=== PATIENT | male | born 1955 | race Hispanic/Latino ===

== ENCOUNTER 2019-05-18 10:41 | Day surgery (SDC) | payer SELFPAY ==
[~2019-05-18 10:41] MED LIST: Dexamethasone 20 MG/5 ML VIAL ONE; Ketorolac Tromethamine 30 MG/ML VIAL ONE; Ondansetron PF 4 MG/2 ML Vial ONE; PROPOFOL 200 MG/20 ML VIAL ONE; diphenhydrAMINE 50 MG/ML VIAL ONE
--- NOTE | 2019-05-18 11:19 | RAD ---
4 views of the right elbow: 05/18/2019 COMPARISON: None HISTORY: Fall, trauma, pain FINDINGS: There is prominent diffuse soft tissue swelling overlying the right elbow as well as the vi sualized right forearm. There is an obliquely oriented intra-articular fracture involving the proximal right ulna/olecranon. The olecranon fracture fragment is proximally displaced secondary to r etraction from the triceps insertion. No evidence for dislocation. IMPRESSION: Intra-articular fracture of the proximal right ulna. Orthopedic consultation advised.
[2019-05-18 11:36] LABS: #Eosinphils 0.1 thou/uL (0.0-0.7); #Lymphocytes 1.6 thou/uL (1.20-3.40); #Monocytes 0.9 thou/uL (0.11-0.59); #Neutrophils 8.1 thou/uL (1.40-6.50); %Basophils 0.4 % (0.0-1.0); %Eosinophils 1.1 % (0.0-10.0); %Lymphocytes 14.8 % (21.0-51.0); %Monocytes 8.4 % (0.0-10.0); %Neutrophils 75.3 % (42.0-75.0); Hemoglobin 14.1 g/dL (14.0-18.0); Mean Corpuscular HGB CONC 33.8 g/dL (32.0-36.0); Mean Corpuscular Hemoglobin 29.9 pg (27.0-31.0); Mean Corpuscular Volume 88.4 fL (78.0-98.0); Mean Platelet Volume 9.8 fL (7.4-10.4); Platelet Count 199 thou/uL (130-400); RBC Distribution Width 11.4 % (11.5-14.5); Red Blood Cell (RBC) Count 4.73 mill/uL (4.70-6.10); White Blood Cell (WBC) Count 10.8 thou/uL (4.8-10.8)
[2019-05-18 11:43] LABS: PTT 30.4 SEC (22.9-36.1); Prothrombin Time 12.9 SEC (12.0-14.7)
--- NOTE | 2019-05-18 11:56 | RAD ---
EXAM: Portable chest PROVIDED CLINICAL HISTORY: Preop COMPARISON: 01/26/2005 FINDINGS: Cardiac and mediastinal silhouette is within normal limits. No focal consolidation, pleural fluid or pneumothorax evident. IMPRESSION: No evidence for an acute cardiopulmonary process.
[2019-05-18 12:00] LABS: ALT (SGPT) 27 U/L (8-55); AST (SGOT) 23 U/L (5-34); Albumin 4.4 g/dL (3.4-4.8); Alkaline Phosphatase 89 U/L (40-110); Anion Gap 16 mmol/L (10-20); BUN (Urea Nitrogen) 12 mg/dL (8.4-25.7); Bilirubin, Total 0.5 mg/dL (0.2-1.2); Calc. Creatinine Clearance 0 mL/min (70-130); Calcium 9.3 mg/dL (7.8-10.44); Carbon Dioxide 20 mmol/L (23-31); Chloride 104 mmol/L (98-107); Estimated GFR-MDRD Greater than 90; Globulin 3.5 g/dL (2.4-3.5); Glucose 71 mg/dL (80-115); Potassium 4.1 mmol/L (3.5-5.1); Protein, Total 7.9 g/dL (5.8-8.1); Sodium 136 mmol/L (136-145)
[2019-05-18] MEDS ORDERED: Morphine 4 MG/ML VIAL ONE (13:45)
[2019-05-18] MEDS ORDERED: Fentanyl 100 MCG/2 ML VIAL ONE ×2 (17:02→18:17)
[2019-05-18] MEDS ORDERED: Labetalol HCl 100 MG/20 ML VIAL ONE (18:28)
[2019-05-18] MEDS ORDERED: HYDROcodone/Acetaminophen 5/325 mg Tablet ONE (19:51)
--- NOTE | 2019-05-19 | OP ---
DATE OF PROCEDURE: 05/18/2019 PROCEDURE PERFORMED: Open reduction and internal fixation of right olecranon fracture. PREOPERATIVE DIAGNOSIS: Displaced right olecranon fracture. POSTOP DIAGNOSIS: Displaced right olecranon fracture. COMPLICATIONS: None. ESTIMATED BLOOD LOSS: Minimal. PHILOSOPHY INSTRUCTOR: None. IMPLANTS: Synthes olecranon plate with variable angle 3.5 mm. INDICATIONS: Mr. Goldsmith is a 63-year-old male, who has fallen and fractured his right olecranon. He has been indicated for open reduction and internal fixation of the fracture to restore anatomic alignment and promote healing. Risks have been reviewed in detail. He elected to proceed with the operation. DESCRIPTION OF PROCEDURE: Mr. Goldsmith was identified in the preoperative holding area. His correct extremity was marked. He was carried to the operating room. He was positioned supine. General anesthesia was induced. A multidisciplinary time-out was performed. The right upper extremity was prepped and draped in sterile fashion. We began the procedure with a posterior incision over the elbow. We dissected down through the subcutaneous tissues to the fascia, which was opened. We exposed the underlying bone. We cleared bony fragments. We reduced the fracture back into its anatomic position and held this with a K-wire. We also used a reduction clamp. Next, we applied a Synthes olecranon plate along the posterior aspect of the olecranon. We placed multiple screws proximally and distally. This locked the plate to the bone and held our reduction appropriately in anatomic position. We took x-ray images throughout the procedure. Once we felt all appropriate screw holes, we took final images. We then thoroughly irrigated with copious lavage. At this point, we closed in layers. 0 Vicryl suture, 2-0 Vicryl suture, and nicole were used for the skin. A sterile dressing was applied. The patient was taken to the recovery room after being placed in a well-padded splint. Job ID: [id number]
--- NOTE | 2019-05-19 07:55 | RAD ---
Radiograph right elbow 2 views: 05/18/2019 5:20 PM HISTORY: 63-year-old male with acute traumatic proximal elbow fracture FINDINGS: Small [id number] fluoroscopic spot images obtained with C-arm in the OR. The fracture at the base of the olecranon process has been reduced and fixated with metallic plate and numerous screws. IMPRESSION: Status post open reduction internal fixation of proximal ulnar fracture at base of olecranon process.
== END 2019-05-18 20:20 | disposition home or self-care (01) ==
LOC: ERS 10:41
PROVIDERS: ATTEND Orthopaedic Surgery
PROC: 0PSK04Z Reposition Right Ulna with Internal Fixation Device, Open Approach (ICD-10-PCS; principal; 2019-05-18)
DX: S52.031A Displaced fracture of olecranon process with intraarticular extension of right ulna, initial encounter for closed fracture (principal); W19.XXXA Unspecified fall, initial encounter
CPT/HCPCS: 36415; 71045; 76000; 80053; 85025; 85610; 85652; 85730; 86140; 93005; 96361; 96374; C1713; J1100; J1200; J1885; J2270; J2405; J2704; J3010

== ENCOUNTER 2019-05-24 12:08 | Emergency (ER) | payer SELFPAY ==
--- NOTE | 2019-05-24 12:56 | RAD ---
RIGHT ELBOW FOUR VIEW: HISTORY: Pain and swelling of the right elbow. FINDINGS: Interval postop changes of reduction and internal fixation of the fracture of the olecranon process o f the ulna is seen with placement of plate and screws since the exam of 05/18/2019. Anatomic alignmen t has been restored. Soft tissue swelling is improved. Skin nicole are present. POS: [facility]
== END 2019-05-24 15:40 | disposition home or self-care (01) ==
LOC: ERS 12:08
DX: G89.18 Other acute postprocedural pain (principal); I10 Essential (primary) hypertension; F17.210 Nicotine dependence, cigarettes, uncomplicated

== ENCOUNTER 2019-06-01 09:36 | Emergency (ER) | payer SELFPAY | END 2019-06-01 10:45 | disposition home or self-care (01) | LOC: ERS 09:36 | DX: Z48.01 Encounter for change or removal of surgical wound dressing (principal); I10 Essential (primary) hypertension; F17.210 Nicotine dependence, cigarettes, uncomplicated | CPT/HCPCS: 99281 ==

== ENCOUNTER 2020-01-31 16:45 | Inpatient (IN) | payer SELFPAY ==
[~2020-01-31 16:45] MED LIST changes: -Dexamethasone 20 MG/5 ML VIAL ONE; +Iopamidol-370 76% 500 ML 1 ML ONE; -Ketorolac Tromethamine 30 MG/ML VIAL ONE; -Ondansetron PF 4 MG/2 ML Vial ONE; -PROPOFOL 200 MG/20 ML VIAL ONE; -diphenhydrAMINE 50 MG/ML VIAL ONE
[2020-01-31 17:32] LABS: Hemoglobin 15.5 g/dL (14.0-18.0); Mean Corpuscular HGB CONC 30.5 g/dL (32.0-36.0); Mean Corpuscular Hemoglobin 27.7 pg (27.0-31.0); Mean Platelet Volume 10.3 fL (7.4-10.4); Platelet Count 215 thou/uL (130-400); RBC Distribution Width 11.8 % (11.5-14.5); White Blood Cell (WBC) Count 22.2 thou/uL (4.8-10.8)
[2020-01-31 17:38] LABS: PTT 24.5 sec (22.9-36.1); Prothrombin Time 13.2 sec (12.0-14.7)
--- NOTE | 2020-01-31 17:46 | CT ---
EXAM: CT brain without contrast HISTORY: Found down by friends with altered mental status and left-sided weakness COMPARISON: 12/11/2008 TECHNIQUE: Multiple contiguous axial images were obtained and a CT of the brain without contrast. FINDINGS: There is hypodensity in the right MCA distribution involving the frontal, parietal, and tem poral lobes which was not seen on the prior examination and likely represents an interval infarction of uncertain age in the MCA distribution. There is no evidence of hydrocephalus, intracran ial hemorrhage, or extra-axial fluid collection. The calvarium and overlying soft tissues are unremarkable. The visualized paranasal sinuses and masto id air cells are well aerated. IMPRESSION: Interval development of infarction in the right MCA distribution. This appears more subac bebeto or chronic rather than acute. Dr. Clancy notified of findings at 5:41 PM on 01/31/2020
[2020-01-31 17:47] LABS: Lymphocytes 12 % (21-51); MDiff Complete? YES; Monocytes 7 % (0-10); Neutrophil 81 % (42-75); Platelet Morphology Comment Appears Adequate; RBC Morphology Normal
[2020-01-31 17:58] LABS: ALT (SGPT) 79 U/L (8-55); AST (SGOT) 35 U/L (5-34); Albumin 3.7 g/dL (3.4-4.8); Alkaline Phosphatase 76 U/L (40-110); Anion Gap 13 mmol/L (10-20); BUN (Urea Nitrogen) 26 mg/dL (8.4-25.7); Bilirubin, Total 0.6 mg/dL (0.2-1.2); Calc. Creatinine Clearance 0 mL/min (70-130); Calcium 8.8 mg/dL (7.8-10.44); Carbon Dioxide 27 mmol/L (23-31); Chloride 104 mmol/L (98-107); Estimated GFR-MDRD 75; Glucose 116 mg/dL (80-115); Potassium 3.7 mmol/L (3.5-5.1); Protein, Total 6.7 g/dL (5.8-8.1); Sodium 140 mmol/L (136-145)
[2020-01-31] MEDS ORDERED: Ondansetron PF 4 MG/2 ML Vial ONE (17:59)
[2020-01-31 18:06] LABS: Acetaminophen Less than 6.0 mcg/mL (10.0-30.0); Alcohol Less than 10 mg/dL (Less than 10); Salicylate Less than 8.0 mg/dL (15.0-30.0)
[2020-01-31 18:42] LABS: Amphetamine Not Detected (NotDetected); Barbiturates Screen Not Detected (NotDetected); Benzodiazepine Screen Not Detected (NotDetected); Cocaine Metabolite Screen Not Detected (NotDetected); Medtox Control Line Valid? VALID (VALID); Medtox Reader # READER 4; Methadone Not Detected (NotDetected); Methamphetamine Not Detected (NotDetected); Opiate Screen Not Detected (NotDetected); Oxycodone Screen Not Detected (NotDetected); Phencyclidine (PCP) Not Detected (NotDetected); THC/Cannabinoid Screen Not Detected (NotDetected); Tricyclic Screen Not Detected (NotDetected)
[2020-01-31] MEDS ORDERED: Aspirin Chewable 81 MG TAB ONE (19:02)
--- NOTE | 2020-01-31 19:03 | CT ---
CT ANGIOGRAM OF THE HEAD CT ANGIOGRAM OF THE NECK: History: Left sided weakness. Comparison: None Technique: CT angiogram of the head and neck performed in the axial plane. 3D reformatted images are submitted for interpretation. FINDINGS: There is loss of cortical harris white matter differentiation involving the right temporal lobe and rig ht occipital parietal junction. The rest of the cerebrum demonstrates cortical harris white matter differentiation and appropriate enha ncement. Adequate aeration of the sinuses and mastoid air cells. Bilateral orbits are unremarkable. Aerodigestive tract is patent. No mucosal abnormality. No obvious masses in the oral cavity. Midline fatty roof of the tongue is preserved. Epiglottis has a normal caliber. The epiglottic fat is preserv ed. Supraglottic, glottis and subglottic larynx have a attenuation and appearance. Appropriate attenuation of the submandibular glands, thyroid glands, and parotid gland. Appropriate attenuation of the paraspinal muscles. Cervical spine vertebral body heights are maintained. There is no evidence of fracture. Prominent ant erior osteophytes throughout the cervical spine. Correlate for DISH. There is a calcified focus along the posterior disc space at C5-6 with inferior and superior migration. 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 Findings may represent calcification of a extruded disc versus calcification in the anterior l ongitudinal ligament. The possibility of a calcified meningioma cannot be excluded. No acute abnormality in the upper mediastinum or lung apices. Nonspecific ground glass opacities are noted. CT ANGIOGRAM: There is appropriate enhancement and luminal diameter of the aortic arch. Right carotid: There is appropriate enhancement and luminal diameter of the origin of the right carot id artery, innominate artery, common carotid artery. There is complete occlusion of the right interna l carotid artery. Left carotid: There is appropriate enhancement and luminal diameter of the common carotid, carotid bi furcation, and internal carotid artery. No significant stenosis based upon NASCET criteria. Bilateral subclavian arteries are patent. Bilateral cervical vertebral arteries are patent. Dominant left vertebral artery. CT ANGIOGRAM OF THE HEAD: Absence of contrast in the intracranial right internal carotid artery. There is appropriate enhanceme nt and luminal diameter of the left internal carotid artery. Anterior circulation: There is appropriate enhancement and luminal diameter of the A1 segment and pro ximal A2 segments. There is appropriate enhancement and luminal diameter of the left and right M1 seg ments. There is irregularity involving distal branches of the right MCA distribution along with abrup t termination in the regions of loss of harris white matter differentiation along the right temporal an d right occipital parietal region. The left M1 segments and proximal MCA branches have appropriate en hancement and luminal diameter. Intracranial vertebral arteries. Both vertebral arteries supply normal appearing basilar arteries. Posterior circulation: Appropriate enhancement and diameter of the basilar artery. Bilateral P1 segme nts have appropriate enhancement and luminal diameter. IMPRESSION: 1. Vascular occlusion of the right internal carotid artery at its origin. There is evidence of c ollateral flow with a patent right A1 segment, M1 segment, and proximal A2 segment/MCA branches. Ther e is diminished flow with irregularity and termination of distal right MCA branches corresponding to the regions of loss of harris white matter differentiation in the right temporal lobe and right occipit al parietal region. Results of study discussed with Dr. Lay 01-31-2020 at 6:16 p.m. Code MITA POS: [facility]
--- NOTE | 2020-01-31 19:17 | PDOC.HHP ---
Hospitalist HPI - History of Present Illness Stroke History of Present Illness: Patient is a 64-year-old male who was brought into the emergency department today. Details are not very clear but it sounds like he was found down by his friends. They also indicated he may have possibly had a stroke 2 weeks prior. There was no way to corroborate any of this information and the patient is unable to give additional history. In the emergency department patient appears to have significant left-sided weakness. His work-up has been consistent with an ischemic stroke. ED Course: In the emergency department patient received 1 L of IV fluids, aspirin 325 mg and Zofran 4 mg IV push. Hospitalist ROS - Review of Systems ROS unobtainable: due to mental status - Medication Medications: None Hospitalist History - Past Medical History Source: old records Cardiac: reports: HTN - Past Surgical History Other Surgical History: Orthopedic procedures and an unknown abdominal surgery noted by a scar on the midline. - Family History Other Family History: Unobtainable - Social History Smoking Status: Current every day smoker Tobacco Type: cigarettes Alcohol: reports: Occassional - Exam General Appearance: NAD General - other findings: Very encephalopathic. Will answer questions. All affirmative. Heart: RRR, no murmur, no gallops, no rubs, normal peripheral pulses Respiratory: CTAB, no wheezes, no rales, no ronchi, normal chest expansion, no tachypnea, normal percussion Gastrointestinal: soft, non-tender, non-distended, normal bowel sounds, no palpable masses, no hepatomegaly, no splenomegaly, no bruit Extremities: no cyanosis, no clubbing, no edema Skin: normal turgor, no lesions, no rashes Neurological - other findings: Incomplete left hemiplegia. Left facial droop Musculoskeletal: generalized weakness Psychiatric: lethargic Psychiatric - other findings: Encephalopathic Hospitalist Results - Labs Result Diagrams: 01/31/20 17:24 01/31/20 17:24 Lab results: WBC 22.2 thou/uL (4.8-10.8) H 01/31/20 17:24 Hgb 15.5 g/dL (14.0-18.0) 01/31/20 17:24 Hct 50.9 % (42.0-52.0) 01/31/20 17:24 MCV 91.0 fL (78.0-98.0) 01/31/20 17:24 Plt Count 215 thou/uL (130-400) 01/31/20 17:24 Sodium 140 mmol/L (136-145) 01/31/20 17:24 Potassium 3.7 mmol/L (3.5-5.1) 01/31/20 17:24 Chloride 104 mmol/L (98-107) 01/31/20 17:24 Carbon Dioxide 27 mmol/L (23-31) 01/31/20 17:24 BUN 26 mg/dL (8.4-25.7) H 01/31/20 17:24 Creatinine 1.00 mg/dL (0.7-1.3) 01/31/20 17:24 Glucose 116 mg/dL (80-115) H 01/31/20 17:24 Calcium 8.8 mg/dL (7.8-10.44) 01/31/20 17:24 Total Bilirubin 0.6 mg/dL (0.2-1.2) 01/31/20 17:24 AST 35 U/L (5-34) H 01/31/20 17:24 ALT 79 U/L (8-55) H 01/31/20 17:24 Alkaline Phosphatase 76 U/L (40-110) 01/31/20 17:24 Troponin I Less than 0.010 ng/mL (< 0.028) 01/31/20 17:24 Serum Total Protein 6.7 g/dL (5.8-8.1) 01/31/20 17:24 Albumin 3.7 g/dL (3.4-4.8) 01/31/20 17:24 Hospitalist H&P A/P - Problem (1) CVA (cerebral vascular accident) Code(s): I63.9 - CEREBRAL INFARCTION, UNSPECIFIED Status: Acute (2) Left hemiplegia Code(s): G81.94 - HEMIPLEGIA, UNSPECIFIED AFFECTING LEFT NONDOMINANT SIDE Status: Acute (3) History of hypertension Code(s): Z86.79 - PERSONAL HISTORY OF OTHER DISEASES OF THE CIRCULATORY SYSTEM Status: Acute (4) Leukocytosis Code(s): D72.829 - ELEVATED WHITE BLOOD CELL COUNT, UNSPECIFIED Status: Acute - Plan Plan: CVA: Patient has significant left hemiplegia and left facial droop. It is incomplete. Currently he is encephalopathic as well. His imaging reveals complete right carotid occlusion with some collateral flow. Is not clear that t his patient's stroke evolved suddenly but may have been progressive over the last 2 weeks. Currently he requires hospitalization because of the significant encephalopathy and left-sided weakness. We will consult the stroke team and neurology. Originate aspirin and statin. We will keep him n.p.o. until he is evaluated by speech therapy. Permissive hypertension. Right carotid occlusion: No intervention possible given the extent of the occlusive disease. History of hypertension: Patient's blood pressure is normal in the emergency department. We will continue to monitor but allow for some hypertension given the setting of the stroke. Leukocytosis: No overt evidence of infection. We will check a urinalysis and chest x-ray. Repeat CBC in the morning.
[2020-01-31] MEDS ORDERED: Famotidine/PF 20 mg/2ml Vial ONE (22:07)
[2020-01-31] MEDS: Atorvastatin Calcium 40 MG TAB PO SCH (22:17)
[2020-01-31] MEDS: Famotidine/PF 20 mg/2ml Vial SLOW IVP SCH (22:17)
[2020-02-01 05:04] LABS: Cardiac Risk 2.7 (Less than 4.5)
[2020-02-01 05:33] LABS: SARS-CoV-2 MS2 Positive; SARS-CoV-2 N Gene Negative; SARS-CoV-2 S Gene Negative; SARS-CoV-2 by NAA Not Detected (NotDetected); SARS-CoV-2 orf1ab Negative
--- NOTE | 2020-02-01 08:14 | RAD ---
Chest one view HISTORY: Leukocytosis. COMPARISON: 05/18/2019. FINDINGS: Cardiac silhouette is magnified and upper limits of normal in size. Pulmonary vasculature i s unremarkable. Mediastinum is midline. No lobar consolidation or evidence of pneumothorax. IMPRESSION : No active cardiopulmonary abnormalities are demonstrated.
[2020-02-01] MEDS ORDERED: Aspirin 325 mg Enteric Coated Tablet PO SCH (09:00)
[2020-02-01] MEDS ORDERED: Enoxaparin Sodium 40 MG/0.4 ML SYRINGE ONE (10:27)
[2020-02-01] MEDS: Enoxaparin Sodium 40 MG/0.4 ML SYRINGE SC SCH (10:37)
[2020-02-01 11:16] LABS: #Basophils 0.1 thou/uL (0.0-0.2); #Eosinphils 0.1 thou/uL (0.0-0.7); #Lymphocytes 3.4 thou/uL (1.20-3.40); #Monocytes 1.2 thou/uL (0.11-0.59); #Neutrophils 12.5 thou/uL (1.40-6.50); %Basophils 0.5 % (0.0-1.0); %Eosinophils 0.8 % (0.0-10.0); %Lymphocytes 19.5 % (21.0-51.0); %Monocytes 6.9 % (0.0-10.0); %Neutrophils 72.4 % (42.0-75.0); Hemoglobin 15.7 g/dL (14.0-18.0); Mean Corpuscular HGB CONC 32.6 g/dL (32.0-36.0); Mean Corpuscular Hemoglobin 29.9 pg (27.0-31.0); Mean Corpuscular Volume 91.7 fL (78.0-98.0); Mean Platelet Volume 10.7 fL (7.4-10.4); Platelet Count 183 thou/uL (130-400); RBC Distribution Width 11.9 % (11.5-14.5); Red Blood Cell (RBC) Count 5.25 mill/uL (4.70-6.10); White Blood Cell (WBC) Count 17.2 thou/uL (4.8-10.8)
[2020-02-01 11:36] LABS: Anion Gap 13 mmol/L (10-20); BUN (Urea Nitrogen) 20 mg/dL (8.4-25.7); Calc. Creatinine Clearance 0 mL/min (70-130); Calcium 8.7 mg/dL (7.8-10.44); Carbon Dioxide 23 mmol/L (23-31); Chloride 105 mmol/L (98-107); Estimated GFR-MDRD Greater than 90; Potassium 4.7 mmol/L (3.5-5.1); Sodium 136 mmol/L (136-145)
--- NOTE | 2020-02-01 11:43 | MRI ---
MRI OF BRAIN WITHOUT CONTRAST: INDICATION: Stroke. COMPARISON: Correlation is made to CT of 01/31/2020 which revealed evidence of right MCA infarct. FINDINGS: Exam is severely degraded due to motion artifact. Review of diffusion in the right MCA distribution weighted images shows scattered areas of restricted diffusion in the right MCA distribution. There is a focus of restricted diffusion in the right shell etal lobe posteriorly. A large area of restricted diffusion involving the right frontal lobe cortex in the parasylvian distribution and scattered areas of restricted diffusion in the right temporal lob e. Focal area of restricted diffusion in the anterior right thalamus. IMPRESSION: Multifocal areas of restricted diffusion in the right cerebral hemisphere within the right middle cer ebral artery distribution consistent with multifocal acute/subacute infarcts. POS: [facility]
[2020-02-01 11:45] LABS: Glucose 58 mg/dL (80-115)
[2020-02-01] MEDS ORDERED: Dextrose 50% Abboject 50 ML SYRINGE ONE (11:48)
[2020-02-01] MEDS ORDERED: Dextrose 5% in Water 1,000 ML IV PRN ×2 (11:54→12:08)
[2020-02-01] MEDS ORDERED: Dextrose 50% Abboject 50 ML SYRINGE SLOW IVP PRN (11:54)
[2020-02-01] MEDS ORDERED: Dextrose 50% Abboject 50 ML SYRINGE SLOW IVP SCH (12:00)
--- NOTE | 2020-02-01 12:53 | PDOC.HOSPP ---
- Subjective Encounter Date: 02/01/20 Subjective: Patient says he feels okay today. He says he is hungry but otherwise has no specific complaints. - Objective Result Diagrams: 02/01/20 09:59 02/01/20 09:59 Additional Labs: Accuchecks 01/31/20 17:39 POC Glucose 107 H Hospitalist ROS - Medication Medications: Active Medications Generic Name Dose Route Start Last Admin Trade Name Freq PRN Reason Stop Dose Admin Aspirin 325 mg 02/01/20 09:00 02/01/20 10:39 Aspirin 325 Mg Enteric Coated Tablet PO Not Given DAILY EYAL Atorvastatin Calcium 40 mg 01/31/20 21:00 01/31/20 22:17 Atorvastatin Calcium 40 Mg Tab PO 40 mg HS EYAL Administration Enoxaparin Sodium 40 mg 02/01/20 09:00 02/01/20 10:37 Enoxaparin Sodium 40 Mg/0.4 Ml Syringe SC 40 mg 0900 EYAL Administration Famotidine 20 mg 01/31/20 21:00 01/31/20 22:17 Famotidine/Pf 20 Mg/2ml Vial SLOW IVP 20 mg Q12HR EYAL Administration Sodium Chloride 10 ml 01/31/20 19:07 02/01/20 11:59 Flush - Normal Saline 10 Ml Syringe IVF 10 ml PRN PRN Administration Saline Flush - Exam General Appearance: NAD General - other findings: Still a little somnolent and encephalopathic Eye: PERRL Heart: RRR, no murmur, no gallops, no rubs, normal peripheral pulses Respiratory: CTAB, no wheezes, no rales, no ronchi, normal chest expansion, no tachypnea, normal percussion Gastrointestinal: soft, non-tender, non-distended, normal bowel sounds, no palpable masses, no hepatomegaly, no splenomegaly, no bruit Extremities: no cyanosis, no clubbing, no edema Skin: normal turgor Neurological - other findings: Substantially improved left-sided weakness. Mild left facial droop. Psychiatric: normal affect, somnolent Hosp A/P (1) CVA (cerebral vascular accident) Code(s): I63.9 - CEREBRAL INFARCTION, UNSPECIFIED Status: Acute (2) Left hemiplegia Code(s): G81.94 - HEMIPLEGIA, UNSPECIFIED AFFECTING LEFT NONDOMINANT SIDE Status: Acute (3) History of hypertension Code(s): Z86.79 - PERSONAL HISTORY OF OTHER DISEASES OF THE CIRCULATORY SYSTEM Status: Acute (4) Leukocytosis Code(s): D72.829 - ELEVATED WHITE BLOOD CELL COUNT, UNSPECIFIED Status: Acute (5) Acute metabolic encephalopathy Code(s): G93.41 - METABOLIC ENCEPHALOPATHY Status: Acute - Plan Patient is a 64-year-old male who presented to the emergency department via EMS. Details were somewhat unclear but it sounds like he was found down by his friends. There was some indication that the patient may have developed symptoms of a stroke 2 weeks prior to his admission. His initial work-up included a CT scan revealing substantial infarct in the right MCA distribution consistent with a subacute infarct. CTA also revealed complete occlusion of the right carotid. Patient manifested left-sided hemiplegia which was incomplete as well as metabolic encephalopathy. CVA: Patient has significant left hemiplegia and left facial droop. Initially was incomplete and substantially improved by 02/01/2020. Initially encephalopathic. His mental status did improve a bit but remained lethargic through 02/01/2020. His imaging reveals complete right carotid occlusion with some collateral flow. Is not clear that this patient's stroke evolved suddenly but may have been progressive over the last 2 weeks. Stroke team was consulted. Initiated aspirin and statin. We will keep him n.p.o. until he is evaluated by speech therapy. Permissive hypertension. Right carotid occlusion: No intervention possible given the extent of the occlusive disease. History of hypertension: Patient's blood pressure is normal in the emergency department. We will continue to monitor but allow for some hypertension given the setting of the stroke. Leukocytosis: No overt evidence of infection. Repeat testing showed a decline in the WBCs. Negative chest x-ray and UA. Remained afebrile. Acute metabolic encephalopathy: Secondary to the acute CVA.
--- NOTE | 2020-02-01 12:58 | CON ---
NEUROLOGY CONSULTATION DATE OF CONSULTATION: 02/01/2020 REASON FOR CONSULTATION: Left-sided weakness/stroke. HISTORY OF PRESENT ILLNESS: Mr. William Goldsmith is a 64-year-old male, who presented to the emergency room after he was found down by the friends. There was also some concern that he had a stroke 2 weeks prior to arrival. History is limited since the patient is a poor historian. In the emergency room, he had significant left- sided hemiplegia, he was given IV fluids and aspirin and Zofran, and admitted for further evaluation. REVIEW OF SYSTEMS: Unobtainable due to the patient's mental status. MEDICATIONS: None. PAST MEDICAL HISTORY: Hypertension. PAST SURGICAL HISTORY: Per records, orthopedic procedures, abdominal surgery. FAMILY HISTORY: Unobtainable. SOCIAL HISTORY: The patient smokes cigarettes daily. Drinks alcohol occasionally. ALLERGIES: NKDA Accuchecks 01/31/20 17:39 POC Glucose 107 H Active Medications Generic Name Dose Route Start Last Admin Trade Name Freq PRN Reason Stop Dose Admin Aspirin 325 mg 02/01/20 09:00 02/01/20 10:39 Aspirin 325 Mg Enteric Coated Tablet PO Not Given DAILY EYAL Atorvastatin Calcium 40 mg 01/31/20 21:00 01/31/20 22:17 Atorvastatin Calcium 40 Mg Tab PO 40 mg HS EYAL Administration Enoxaparin Sodium 40 mg 02/01/20 09:00 02/01/20 10:37 Enoxaparin Sodium 40 Mg/0.4 Ml Syringe SC 40 mg 0900 EYAL Administration Famotidine 20 mg 01/31/20 21:00 01/31/20 22:17 Famotidine/Pf 20 Mg/2ml Vial SLOW IVP 20 mg Q12HR EYAL Administration Sodium Chloride 10 ml 01/31/20 19:07 02/01/20 11:59 Flush - Normal Saline 10 Ml Syringe IVF 10 ml PRN PRN Administration Saline Flush PHYSICAL EXAMINATION: General Appearance: NAD General - other findings: Still a little somnolent and encephalopathic Eye: PERRL Heart: RRR, no murmur, no gallops, no rubs, normal peripheral pulses Respiratory: CTAB, no wheezes, no rales, no ronchi, normal chest expansion, no tachypnea, normal percussion Gastrointestinal: soft, non-tender, non-distended, normal bowel sounds, no palpable masses, no hepatomegaly, no splenomegaly, no bruit Extremities: no cyanosis, no clubbing, no edema Skin: normal turgor Neurological - Mental status, the patient is alert and oriented to person and place, but not time or year. Slurred speech. Motor, muscle tone and bulk are normal. Strength 3/5 in the left upper extremity, 4/5 in the left lower extremity, 5/5 in the right upper and lower extremity. Cerebellar, unable to perform on the left secondary to weakness. Sensory, withdraws to nailbed pressure, right greater than left. Cranial nerves 2 through 12 are intact except 7 with left facial droop. DATA REVIEWED: I reviewed the labs, which were significant for leukocytosis of 22.2, and BUN of 26 and creatinine of 1 and hyperglycemia of 116. Lab results: WBC 22.2 thou/uL (4.8-10.8) H 01/31/20 17:24 Hgb 15.5 g/dL (14.0-18.0) 01/31/20 17:24 Hct 50.9 % (42.0-52.0) 01/31/20 17:24 MCV 91.0 fL (78.0-98.0) 01/31/20 17:24 Plt Count 215 thou/uL (130-400) 01/31/20 17:24 Sodium 140 mmol/L (136-145) 01/31/20 17:24 Potassium 3.7 mmol/L (3.5-5.1) 01/31/20 17:24 Chloride 104 mmol/L (98-107) 01/31/20 17:24 Carbon Dioxide 27 mmol/L (23-31) 01/31/20 17:24 BUN 26 mg/dL (8.4-25.7) H 01/31/20 17:24 Creatinine 1.00 mg/dL (0.7-1.3) 01/31/20 17:24 Glucose 116 mg/dL (80-115) H 01/31/20 17:24 Calcium 8.8 mg/dL (7.8-10.44) 01/31/20 17:24 Total Bilirubin 0.6 mg/dL (0.2-1.2) 01/31/20 17:24 AST 35 U/L (5-34) H 01/31/20 17:24 ALT 79 U/L (8-55) H 01/31/20 17:24 Alkaline Phosphatase 76 U/L (40-110) 01/31/20 17:24 Troponin I Less than 0.010 ng/mL (< 0.028) 01/31/20 17:24 Serum Total Protein 6.7 g/dL (5.8-8.1) 01/31/20 17:24 Albumin 3.7 g/dL (3.4-4.8) 01/31/20 17:24 ASSESSMENT AND PLAN: (1) CVA (cerebral vascular accident) Code(s): I63.9 - CEREBRAL INFARCTION, UNSPECIFIED Status: Acute (2) Left hemiplegia Code(s): G81.94 - HEMIPLEGIA, UNSPECIFIED AFFECTING LEFT NONDOMINANT SIDE Status: Acute (3) History of hypertension Code(s): Z86.79 - PERSONAL HISTORY OF OTHER DISEASES OF THE CIRCULATORY SYSTEM Status: Acute (4) Leukocytosis Code(s): D72.829 - ELEVATED WHITE BLOOD CELL COUNT, UNSPECIFIED Status: Acute (5) Acute metabolic encephalopathy Code(s): G93.41 - METABOLIC ENCEPHALOPATHY Status: Acute Mr. William Goldsmith is a 64-year-old male with history significant for hypertension, presented with left hemiplegia and left facial droop. Head CT positive for subacute stroke. MRI of the brain reviewed, which showed multifocal infarcts in the right MCA territory. CTA showed complete right carotid occlusion with some collateral flow. Consider 2D echo to rule out thrombus or PFO and evaluate left ventricular ejection fraction, telemetry to rule out arrhythmias. Neuro checks every 4 hours. Continue aspirin and high-intensity statin for secondary stroke prevention. PT/OT/speech. Continue medical management per primary team. Permissive control of blood pressure at this time. Strict control of blood glucose. Deep venous thrombosis prophylaxis. We will continue to follow. Thank you for the consult. The patient's condition improved and weakness improved since admission. Plan discussed with the patient, nursing staff and also with the primary attending, Dr. Tamayo. Job ID: [id number]
[2020-02-01] MEDS ORDERED: Aspirin 300 MG Suppository PR SCH (18:00)
[2020-02-01] MEDS: Dextrose 5 %-0.45 % NaCl 1,000 ML IV SCH (18:39)
[2020-02-01] MEDS: Famotidine/PF 20 mg/2ml Vial SLOW IVP SCH ×2 (18:40→21:43)
[2020-02-01 20:41] VITALS: BMI 27.4
[2020-02-01] MEDS: Atorvastatin Calcium 40 MG TAB PO SCH (21:44)
[2020-02-02] MEDS ORDERED: FLU VACC QS2020-21(6MOS UP)/PF 60 MCG/0.5 ML SYRINGE IM ONE (09:00)
[2020-02-02] MEDS ORDERED: Aspirin 300 MG Suppository PR SCH (09:00)
[2020-02-02] MEDS: Enoxaparin Sodium 40 MG/0.4 ML SYRINGE SC SCH (09:38)
[2020-02-02] MEDS: Famotidine/PF 20 mg/2ml Vial SLOW IVP SCH ×2 (09:39→20:37)
[2020-02-02] MEDS: Dextrose 5 %-0.45 % NaCl 1,000 ML IV SCH ×3 (09:51→20:37)
[2020-02-02 10:16] LABS: #Eosinphils 0.1 thou/uL (0.0-0.7); #Lymphocytes 2.1 thou/uL (1.20-3.40); #Monocytes 1.1 thou/uL (0.11-0.59); #Neutrophils 7.7 thou/uL (1.40-6.50); %Basophils 0.1 % (0.0-1.0); %Eosinophils 1.2 % (0.0-10.0); %Lymphocytes 19.4 % (21.0-51.0); %Monocytes 9.7 % (0.0-10.0); %Neutrophils 69.6 % (42.0-75.0); Hemoglobin 17.3 g/dL (14.0-18.0); Mean Corpuscular Hemoglobin 30.4 pg (27.0-31.0); Mean Corpuscular Volume 92.1 fL (78.0-98.0); Mean Platelet Volume 10.4 fL (7.4-10.4); Platelet Count 151 thou/uL (130-400); RBC Distribution Width 11.9 % (11.5-14.5)
[2020-02-02 10:31] LABS: Anion Gap 13 mmol/L (10-20); BUN (Urea Nitrogen) 17 mg/dL (8.4-25.7); Calc. Creatinine Clearance 107 mL/min (70-130); Calcium 8.6 mg/dL (7.8-10.44); Carbon Dioxide 25 mmol/L (23-31); Chloride 104 mmol/L (98-107); Estimated GFR-MDRD Greater than 90; Glucose 75 mg/dL (80-115); Sodium 138 mmol/L (136-145)
--- NOTE | 2020-02-02 11:40 | PDOC.NEUPN ---
- Subjective Encounter Date: 02/02/20 Subjective: Patient alert and oriented and able to follow commands appropriately. S ignificant improvement in left-sided weakness. - Objective Vital Signs & Weight: Vital Signs (12 hours) Temp Pulse Resp BP BP Pulse Ox 02/02/20 11:00 97.5 F L 56 L 16 121/88 94 L 02/02/20 07:29 97.9 F 47 L 20 131/80 94 L 02/02/20 05:35 97.4 F L 46 L 18 128/78 97 Weight Weight 165 lb 1.6 oz Result Diagrams: 02/02/20 09:50 02/02/20 09:50 Additional Labs: Accuchecks 02/02/20 02/02/20 02/01/20 10:43 06:24 20:18 POC Glucose 79 83 82 02/01/20 02/01/20 18:25 13:16 POC Glucose 75 80 Radiology Reviewed by me: Yes EKG Reviewed by me: Yes ROS - Review of Systems Constitutional: denies: fever, chills, sweats, weakness, malaise, other Eyes: denies: pain, vision change, conjunctivae inflammation, eyelid inflammation, redness, other Genitourinary: denies: dysuria, frequency, incontinence, hematuria, retention, other Skin: denies: rash, lesions, ana, bruising, other Neurological: reports: weakness, numbness, incoordination - Medication Medications: Active Medications Generic Name Dose Route Start Last Admin Trade Name Freq PRN Reason Stop Dose Admin Aspirin 300 mg 02/02/20 09:00 02/02/20 09:38 Aspirin 300 Mg Suppository DE 300 mg DAILY EYAL Administration Atorvastatin Calcium 40 mg 01/31/20 21:00 02/01/20 21:44 Atorvastatin Calcium 40 Mg Tab PO Not Given HS EYAL Enoxaparin Sodium 40 mg 02/01/20 09:00 02/02/20 09:38 Enoxaparin Sodium 40 Mg/0.4 Ml Syringe SC 40 mg 0900 EYAL Administration Famotidine 20 mg 01/31/20 21:00 02/02/20 09:39 Famotidine/Pf 20 Mg/2ml Vial SLOW IVP 20 mg Q12HR EYAL Administration Dextrose/Sodium Chloride 1,000 mls @ 75 mls/hr 02/01/20 12:15 02/02/20 09:51 D5 1/2 Ns IV 1,000 mls .[id number] EYAL Administration Sodium Chloride 10 ml 01/31/20 19:07 02/01/20 21:43 Flush - Normal Saline 10 Ml Syringe IVF 10 ml PRN PRN Administration Saline Flush - Exam General Appearance: awake alert Eye: PERRL ENT: normocephalic atraumatic Neck: supple Respiratory: CTAB Cardiovascular: RRR Gastrointestinal: soft Extremities: no cyanosis Skin: normal turgor Neurological: no new deficit Neurological - other findings: Left hemiparesis Musculoskeletal: normal tone, no muscle wasting PSYCH: normal affect, normal behavior, oriented to person, oriented to place Results - Labs Result Diagrams: 02/02/20 09:50 02/02/20 09:50 Lab results: WBC 11.0 thou/uL (4.8-10.8) H 02/02/20 09:50 Hgb 17.3 g/dL (14.0-18.0) 02/02/20 09:50 Hct 52.5 % (42.0-52.0) H 02/02/20 09:50 MCV 92.1 fL (78.0-98.0) 02/02/20 09:50 Plt Count 151 thou/uL (130-400) 02/02/20 09:50 Neutrophils % 69.6 % (42.0-75.0) 02/02/20 09:50 Sodium 138 mmol/L (136-145) 02/02/20 09:50 Potassium 4.0 mmol/L (3.5-5.1) 02/02/20 09:50 Chloride 104 mmol/L (98-107) 02/02/20 09:50 Carbon Dioxide 25 mmol/L (23-31) 02/02/20 09:50 BUN 17 mg/dL (8.4-25.7) 02/02/20 09:50 Creatinine 0.74 mg/dL (0.7-1.3) 02/02/20 09:50 Glucose 75 mg/dL (80-115) L 02/02/20 09:50 Calcium 8.6 mg/dL (7.8-10.44) 02/02/20 09:50 Total Bilirubin 0.6 mg/dL (0.2-1.2) 01/31/20 17:24 AST 35 U/L (5-34) H 01/31/20 17:24 ALT 79 U/L (8-55) H 01/31/20 17:24 Alkaline Phosphatase 76 U/L (40-110) 01/31/20 17:24 Troponin I Less than 0.010 ng/mL (< 0.028) 01/31/20 17:24 Serum Total Protein 6.7 g/dL (5.8-8.1) 01/31/20 17:24 Albumin 3.7 g/dL (3.4-4.8) 01/31/20 17:24 - Radiology Interpretation MRI - head Additional Comment: MRI of the brain consistent with acute/subacute multifocal infarcts in the right middle cerebral artery territory PN A/P (1) Acute CVA (cerebrovascular accident) Code(s): I63.9 - CEREBRAL INFARCTION, UNSPECIFIED Status: Acute (2) Acute metabolic encephalopathy Code(s): G93.41 - METABOLIC ENCEPHALOPATHY Status: Acute (3) History of hypertension Code(s): Z86.79 - PERSONAL HISTORY OF OTHER DISEASES OF THE CIRCULATORY SYSTEM Status: Acute (4) Left hemiplegia Code(s): G81.94 - HEMIPLEGIA, UNSPECIFIED AFFECTING LEFT NONDOMINANT SIDE Status: Acute - Plan Daily Plan: PT/OT, speech therapy, DVT proph w/SCDs Mr. Goldsmith is a 64-year-old male presented with left-sided weakness and left facial droop. Neurological deficits significantly improved since admission. MRI of the brain reviewed which was consistent with acute/subacute multifocal infarcts in the right middle cerebral artery territory. CTA of the head and neck showed vascular occlusion of the right internal carotid artery at its origin with collateral circulation and moderate atherosclerotic disease. 2D echo to evaluate for left ventricular ejection fraction is pending. Continue telemetry EEG to evaluate for encephalopathy is negative for seizure activity. Neurochecks every 4 hours. Continue aspirin and high intensity statin for secondary stroke prevention. Monitor blood pressure and blood glucose. PT/OT/speech DVT prophylaxis Continue medical management per primary team. Plan discussed with the nursing staff.
--- NOTE | 2020-02-02 12:08 | PDOC.EEG ---
Neurology EEG Report - Report Report: This EEG was performed using 24 channel Diana video digital EEG machine with 24 disc electrodes. This was an extended 2-hour 5 minutes of inpatient video EEG recording. Digital analysis of the EEG was done for Gael and seizure detection which revealed no abnormalities Background: The posterior background rhythm is 8-8.5 hz. Minimal reactivity seen with eye opening and closure. Hyperventilation: Not performed. Photic stimulation. Bioccipital symmetric response seen with photic stimulation. EEG diagnosis: Rare irregular theta activity seen during the recording. Nonsustained posterior background rhythm. Clinical interpretation: This EEG is consistent with mild generalized nonspecific cerebral dysfunction.
--- NOTE | 2020-02-02 14:39 | PDOC.HOSPP ---
- Subjective Encounter Date: 02/02/20 Encounter Time: 13:15 Subjective: Patient is seen for follow-up today for a stroke. He states that he is feeling hungry but denies any pain or discomfort. He has a friend at the bedside with him. He states [place] 2 roommates does not have family here. - Objective Vital Signs & Weight: Vital Signs (12 hours) Temp Pulse Resp BP BP Pulse Ox 02/02/20 11:00 97.5 F L 56 L 16 121/88 94 L 02/02/20 07:29 97.9 F 47 L 20 131/80 94 L 02/02/20 05:35 97.4 F L 46 L 18 128/78 97 Weight Weight 165 lb 1.6 oz Result Diagrams: 02/02/20 09:50 02/02/20 09:50 Additional Labs: Accuchecks 02/02/20 02/02/20 02/01/20 10:43 06:24 20:18 POC Glucose 79 83 82 02/01/20 18:25 POC Glucose 75 Hospitalist ROS - Medication Medications: Active Medications Generic Name Dose Route Start Last Admin Trade Name Freq PRN Reason Stop Dose Admin Aspirin 300 mg 02/02/20 09:00 02/02/20 09:38 Aspirin 300 Mg Suppository [place] 300 mg DAILY EYAL Administration Atorvastatin Calcium 40 mg 01/31/20 21:00 02/01/20 21:44 Atorvastatin Calcium 40 Mg Tab PO Not Given HS EYAL Enoxaparin Sodium 40 mg 02/01/20 09:00 02/02/20 09:38 Enoxaparin Sodium 40 Mg/0.4 Ml Syringe SC 40 mg 0900 EYAL Administration Famotidine 20 mg 01/31/20 21:00 02/02/20 09:39 Famotidine/Pf 20 Mg/2ml Vial SLOW IVP 20 mg Q12HR EYAL Administration Dextrose/Sodium Chloride 1,000 mls @ 75 mls/hr 02/01/20 12:15 02/02/20 14:02 D5 1/2 Ns IV Not Given .[id number] EYAL Sodium Chloride 10 ml 01/31/20 19:07 02/01/20 21:43 Flush - Normal Saline 10 Ml Syringe IVF 10 ml PRN PRN Administration Saline Flush - Exam General Appearance: NAD, awake alert ENT: normocephalic atraumatic Heart: RRR, no murmur, no gallops, no rubs, normal peripheral pulses Respiratory: CTAB, no wheezes, no rales, no ronchi, normal chest expansion Gastrointestinal: soft, non-tender, non-distended, normal bowel sounds, no palpable masses Neurological: no new deficit Musculoskeletal - other findings: equal strength Psychiatric: oriented to person, oriented to place, oriented to time (to year) Hosp A/P (1) Acute CVA (cerebrovascular accident) Code(s): I63.9 - CEREBRAL INFARCTION, UNSPECIFIED Status: Acute (2) Acute metabolic encephalopathy Code(s): G93.41 - METABOLIC ENCEPHALOPATHY Status: Acute (3) Left hemiplegia Code(s): G81.94 - HEMIPLEGIA, UNSPECIFIED AFFECTING LEFT NONDOMINANT SIDE Status: Acute (4) History of hypertension Code(s): Z86.79 - PERSONAL HISTORY OF OTHER DISEASES OF THE CIRCULATORY SYSTEM Status: Chronic (5) Leukocytosis Code(s): D72.829 - ELEVATED WHITE BLOOD CELL COUNT, UNSPECIFIED Status: Acute - Plan CVA: Patient has significant left hemiplegia and left facial droop. Initially encephalopathic, mental status continues to improve. His imaging reveals complete right carotid occlusion with some collateral flow. Is not clear that this patient's stroke evolved suddenly but may have been progressive over the last 2 weeks. Stroke team was consulted. Initiated aspirin and statin. Diet advanced today after speech assessment, aspirin changed to oral. Permissive hypertension. Right carotid occlusion: No intervention possible given the extent of the occlusive disease. History of hypertension: We will continue to monitor but allow for some hypertension given the setting of the stroke. Leukocytosis: No overt evidence of infection. Repeat testing showed a decline in the WBCs. Negative chest x-ray and UA. Remains afebrile. Acute metabolic encephalopathy: Secondary to the acute CVA. CM consult in place for post acute placement needs
[2020-02-02 18:28] LABS: Bilirubin Negative (Negative); Blood, Urine Negative (Negative); Clarity Clear (Clear); Glucose, Urine (Dipstick) Normal (Negative); Ketone, Urine Negative (Negative); Leukocyte Negative Leu/uL (Negative); Nitrite Negative (Negative); Protein, Urine (Dipstick) Negative (Neg-Trace); Specific Gravity, Urine 1.016 (1.002-1.036); pH, Urine 5.5 (5.0-9.0)
[2020-02-02] MEDS: Atorvastatin Calcium 40 MG TAB PO SCH (20:37)
[2020-02-03] MEDS: Aspirin 325 MG TAB PO SCH (10:02)
[2020-02-03] MEDS: Enoxaparin Sodium 40 MG/0.4 ML SYRINGE SC SCH (10:02)
[2020-02-03] MEDS: Famotidine/PF 20 mg/2ml Vial SLOW IVP SCH (10:02)
--- NOTE | 2020-02-03 12:18 | PDOC.NEUPN ---
- Subjective Encounter Date: 02/03/20 Subjective: Patient alert and oriented and able to follow commands appropriately. S ignificant improvement in left-sided weakness. - Objective Vital Signs & Weight: Vital Signs (12 hours) Temp Pulse Pulse Pulse Resp BP BP 02/03/20 11:21 98.3 F 53 L 16 02/03/20 09:23 62 55 L 116/78 121/77 02/03/20 07:35 98.1 F 56 L 16 02/03/20 04:00 97.5 F L 49 L 14 BP Pulse Ox 02/03/20 11:21 129/77 94 L 02/03/20 09:23 02/03/20 07:35 139/87 96 02/03/20 04:00 124/81 100 Weight Weight 165 lb 1.6 oz I&O: 02/02/20 02/03/20 02/04/20 06:59 06:59 06:59 Intake Total 240 Output Total 1000 Balance -760 Result Diagrams: 02/02/20 09:50 02/02/20 09:50 Additional Labs: Accuchecks 02/03/20 02/03/20 02/02/20 10:28 05:34 21:51 POC Glucose 88 98 106 H 02/02/20 16:40 POC Glucose 107 H Radiology Reviewed by me: Yes EKG Reviewed by me: Yes ROS - Review of Systems Constitutional: denies: fever, chills, sweats, weakness, malaise, other Eyes: denies: pain, vision change, conjunctivae inflammation, eyelid inflammation, redness, other ENT: denies: ear pain, ear discharge, nose pain, nose discharge, nose congestion, mouth pain, mouth swelling, throat pain, throat swelling, other Respiratory: denies: cough, dry, shortness of breath, hemoptysis, SOB with excertion, pleuritic pain, sputum, wheezing, other Skin: denies: rash, lesions, ana, bruising, other All Systems: All other systems reviewed; all pertinent +/- noted in HPI/Subj - Medication Medications: Active Medications Generic Name Dose Route Start Last Admin Trade Name Freq PRN Reason Stop Dose Admin Aspirin 325 mg 02/03/20 09:00 02/03/20 10:02 Aspirin 325 Mg Tab PO 325 mg DAILY EYAL Administration Atorvastatin Calcium 40 mg 01/31/20 21:00 02/02/20 20:37 Atorvastatin Calcium 40 Mg Tab PO 40 mg HS EYAL Administration Enoxaparin Sodium 40 mg 02/01/20 09:00 02/03/20 10:02 Enoxaparin Sodium 40 Mg/0.4 Ml Syringe SC 40 mg 0900 EYAL Administration Famotidine 20 mg 01/31/20 21:00 02/03/20 10:02 Famotidine/Pf 20 Mg/2ml Vial SLOW IVP 20 mg Q12HR EYAL Administration Dextrose/Sodium Chloride 1,000 mls @ 75 mls/hr 02/01/20 12:15 02/02/20 20:37 D5 1/2 Ns IV 1,000 mls .[id number] EYAL Administration Sodium Chloride 10 ml 01/31/20 19:07 02/02/20 20:37 Flush - Normal Saline 10 Ml Syringe IVF 10 ml PRN PRN Administration Saline Flush - Exam General Appearance: awake alert Eye: PERRL ENT: normocephalic atraumatic Neck: supple Respiratory: CTAB Cardiovascular: RRR Gastrointestinal: soft Extremities: no cyanosis Skin: normal turgor Neurological: no new deficit, facial droop, hemiplegia Musculoskeletal: no muscle wasting PSYCH: normal affect, normal behavior, A&O x 3 Results - Labs Result Diagrams: 02/02/20 09:50 02/02/20 09:50 Lab results: WBC 11.0 thou/uL (4.8-10.8) H 02/02/20 09:50 Hgb 17.3 g/dL (14.0-18.0) 02/02/20 09:50 Hct 52.5 % (42.0-52.0) H 02/02/20 09:50 MCV 92.1 fL (78.0-98.0) 02/02/20 09:50 Plt Count 151 thou/uL (130-400) 02/02/20 09:50 Neutrophils % 69.6 % (42.0-75.0) 02/02/20 09:50 Sodium 138 mmol/L (136-145) 02/02/20 09:50 Potassium 4.0 mmol/L (3.5-5.1) 02/02/20 09:50 Chloride 104 mmol/L (98-107) 02/02/20 09:50 Carbon Dioxide 25 mmol/L (23-31) 02/02/20 09:50 BUN 17 mg/dL (8.4-25.7) 02/02/20 09:50 Creatinine 0.74 mg/dL (0.7-1.3) 02/02/20 09:50 Glucose 75 mg/dL (80-115) L 02/02/20 09:50 Calcium 8.6 mg/dL (7.8-10.44) 02/02/20 09:50 Total Bilirubin 0.6 mg/dL (0.2-1.2) 01/31/20 17:24 AST 35 U/L (5-34) H 01/31/20 17:24 ALT 79 U/L (8-55) H 01/31/20 17:24 Alkaline Phosphatase 76 U/L (40-110) 01/31/20 17:24 Troponin I Less than 0.010 ng/mL (< 0.028) 01/31/20 17:24 Serum Total Protein 6.7 g/dL (5.8-8.1) 01/31/20 17:24 Albumin 3.7 g/dL (3.4-4.8) 01/31/20 17:24 Urine Ketones Negative mg/dL (Negative) 02/02/20 17:55 Urine Blood Negative (Negative) 02/02/20 17:55 Urine Nitrite Negative (Negative) 02/02/20 17:55 Ur Leukocyte Esterase Negative Asher/uL (Negative) 02/02/20 17:55 - Radiology Interpretation MRI - head Additional Comment: MRI of the brain consistent with acute/subacute multifocal infarcts in the right MCA territory PN A/P (1) Acute CVA (cerebrovascular accident) Code(s): I63.9 - CEREBRAL INFARCTION, UNSPECIFIED Status: Acute (2) Acute metabolic encephalopathy Code(s): G93.41 - METABOLIC ENCEPHALOPATHY Status: Acute (3) History of hypertension Code(s): Z86.79 - PERSONAL HISTORY OF OTHER DISEASES OF THE CIRCULATORY SYSTEM Status: Chronic (4) Left hemiplegia Code(s): G81.94 - HEMIPLEGIA, UNSPECIFIED AFFECTING LEFT NONDOMINANT SIDE Status: Acute - Plan Daily Plan: PT/OT, speech therapy, DVT proph w/SCDs Mr. Goldsmith is a 64-year-old male presented with left-sided weakness and left facial droop. Neurological deficits significantly improved since admission. Patient participated with physical therapy. MRI of the brain reviewed which was consistent with acute/subacute multifocal infarcts in the right middle cerebral artery territory. CTA of the head and neck showed vascular occlusion of the right internal carotid artery at its origin with collateral circulation and moderate atherosclerotic disease. 2D echo to evaluate for left ventricular ejection fraction is pending. Continue telemetry EEG to evaluate for encephalopathy is negative for seizure activity. Continue neurochecks every 4 hours. Continue aspirin and high intensity statin for secondary stroke prevention. Continue to monitor blood pressure and blood glucose. Continue PT/OT/speech DVT prophylaxis Continue medical management per primary team. Management on board regarding discharge planning Plan discussed with the nursing staff and also during the stroke rounds
--- NOTE | 2020-02-03 15:45 | PDOC.HOSPP ---
- Subjective Encounter Date: 02/03/20 Encounter Time: 08:00 Subjective: Seen for follow-up regarding acute ischemic cerebrovascular accident. He denies any chest pain or shortness of breath. He reports weakness is improved. - Objective Vital Signs & Weight: Vital Signs (12 hours) Temp Pulse Pulse Pulse Resp BP BP 02/03/20 11:21 98.3 F 53 L 16 02/03/20 09:23 62 55 L 116/78 121/77 02/03/20 07:35 98.1 F 56 L 16 02/03/20 04:00 97.5 F L 49 L 14 BP Pulse Ox 02/03/20 11:21 129/77 94 L 02/03/20 09:23 02/03/20 07:35 139/87 96 02/03/20 04:00 124/81 100 Weight Admit Weight 165 lb 1.6 oz Weight 165 lb 1.6 oz I&O: 02/02/20 02/03/20 02/04/20 06:59 06:59 06:59 Intake Total 240 Output Total 1000 Balance -760 Result Diagrams: 02/02/20 09:50 02/02/20 09:50 Additional Labs: Accuchecks 02/03/20 02/03/20 02/02/20 10:28 05:34 21:51 POC Glucose 88 98 106 H 02/02/20 16:40 POC Glucose 107 H I reviewed patient's labs and MAR EKG Reviewed by me: Yes (Normal sinus rhythm on telemetry) Hospitalist ROS - Review of Systems Respiratory: denies: cough, dry, shortness of breath, hemoptysis, SOB with excertion, pleuritic pain, sputum, wheezing Cardiovascular: denies: chest pain, palpitations, orthopnea, paroxysmal noc. dyspnea, edema, light headedness - Medication Medications: Active Medications Generic Name Dose Route Start Last Admin Trade Name Freq PRN Reason Stop Dose Admin Aspirin 325 mg 02/03/20 09:00 02/03/20 10:02 Aspirin 325 Mg Tab PO 325 mg DAILY EYAL Administration Atorvastatin Calcium 40 mg 01/31/20 21:00 02/02/20 20:37 Atorvastatin Calcium 40 Mg Tab PO 40 mg HS EYAL Administration Enoxaparin Sodium 40 mg 02/01/20 09:00 02/03/20 10:02 Enoxaparin Sodium 40 Mg/0.4 Ml Syringe SC 40 mg 0900 EYAL Administration Famotidine 20 mg 01/31/20 21:00 02/03/20 10:02 Famotidine/Pf 20 Mg/2ml Vial SLOW IVP 20 mg Q12HR EYAL Administration Dextrose/Sodium Chloride 1,000 mls @ 75 mls/hr 02/01/20 12:15 02/02/20 20:37 D5 1/2 Ns IV 1,000 mls .[id number] EYAL Administration Sodium Chloride 10 ml 01/31/20 19:07 02/02/20 20:37 Flush - Normal Saline 10 Ml Syringe IVF 10 ml PRN PRN Administration Saline Flush - Exam General Appearance: awake alert Eye: anicteric sclera ENT: moist mucosa Neck: supple Heart: RRR Respiratory: CTAB Gastrointestinal: soft, non-tender Skin: no rashes Neurological - other findings: Left-sided weakness is improved Psychiatric: normal affect Hosp A/P - Plan -Assessment (1) Acute CVA (cerebrovascular accident) Code(s): I63.9 - CEREBRAL INFARCTION, UNSPECIFIED Status: Acute (2) Acute metabolic encephalopathy Code(s): G93.41 - METABOLIC ENCEPHALOPATHY Status: Acute (3) Left hemiplegia Code(s): G81.94 - HEMIPLEGIA, UNSPECIFIED AFFECTING LEFT NONDOMINANT SIDE Status: Acute (4) History of hypertension Code(s): Z86.79 - PERSONAL HISTORY OF OTHER DISEASES OF THE CIRCULATORY SYSTEM Status: Chronic (5) Leukocytosis Code(s): D72.829 - ELEVATED WHITE BLOOD CELL COUNT, UNSPECIFIED Status: Acute - Plan CVA: Patient is clinically improving. Continue aspirin and statin. Discharge planning in progress. Right carotid occlusion: No surgical intervention, continue statin. History of hypertension: Permissive hypertension. Leukocytosis: Check a.m. labs, leukocytosis was improving. Acute metabolic encephalopathy: Improving.
[2020-02-03] MEDS: Dextrose 5 %-0.45 % NaCl 1,000 ML IV SCH (16:04)
[2020-02-03] MEDS: Atorvastatin Calcium 40 MG TAB PO SCH (21:55)
[2020-02-03] MEDS: Famotidine 20 MG TAB PO SCH (21:55)
[2020-02-04 04:48] LABS: #Eosinphils 0.2 thou/uL (0.0-0.7); #Lymphocytes 1.4 thou/uL (1.20-3.40); #Monocytes 0.8 thou/uL (0.11-0.59); #Neutrophils 4.9 thou/uL (1.40-6.50); %Basophils 0.3 % (0.0-1.0); %Eosinophils 2.2 % (0.0-10.0); %Lymphocytes 19.3 % (21.0-51.0); %Neutrophils 67.3 % (42.0-75.0); Hemoglobin 15.1 g/dL (14.0-18.0); Mean Corpuscular HGB CONC 32.4 g/dL (32.0-36.0); Mean Corpuscular Hemoglobin 30.4 pg (27.0-31.0); Mean Corpuscular Volume 93.9 fL (78.0-98.0); Platelet Count 133 thou/uL (130-400); RBC Distribution Width 11.8 % (11.5-14.5); Red Blood Cell (RBC) Count 4.97 mill/uL (4.70-6.10); White Blood Cell (WBC) Count 7.2 thou/uL (4.8-10.8)
[2020-02-04 05:05] LABS: Anion Gap 10 mmol/L (10-20); BUN (Urea Nitrogen) 11 mg/dL (8.4-25.7); Calc. Creatinine Clearance 113 mL/min (70-130); Calcium 8.4 mg/dL (7.8-10.44); Carbon Dioxide 26 mmol/L (23-31); Chloride 107 mmol/L (98-107); Estimated GFR-MDRD Greater than 90; Glucose 88 mg/dL (80-115); Potassium 3.8 mmol/L (3.5-5.1); Sodium 139 mmol/L (136-145)
[2020-02-04] MEDS: Dextrose 5 %-0.45 % NaCl 1,000 ML IV SCH ×2 (06:19→21:00)
[2020-02-04] MEDS: Aspirin 325 MG TAB PO SCH (09:32)
[2020-02-04] MEDS: Famotidine 20 MG TAB PO SCH ×2 (09:32→22:19)
[2020-02-04] MEDS: Enoxaparin Sodium 40 MG/0.4 ML SYRINGE SC SCH (09:33)
--- NOTE | 2020-02-04 11:52 | PDOC.NEUPN ---
- Subjective Encounter Date: 02/04/20 Subjective: Patient alert and oriented and able to follow commands appropriately. S ignificant improvement in left-sided weakness since admission. - Objective Vital Signs & Weight: Vital Signs (12 hours) Temp Pulse Resp BP Pulse Ox 02/04/20 11:34 98.4 F 55 L 14 109/72 95 02/04/20 07:43 97.8 F 50 L 14 133/82 91 L 02/04/20 03:33 97.3 F L 57 L 16 122/94 H 97 02/04/20 02:59 97.3 F L 57 L 16 102/58 L 97 Weight Admit Weight 165 lb 1.6 oz Weight 165 lb 1.6 oz I&O: 02/03/20 02/04/20 02/05/20 06:59 06:59 06:59 Intake Total 240 720 Output Total 1000 1050 Balance -760 330 Result Diagrams: 02/04/20 04:31 02/04/20 04:31 Additional Labs: Accuchecks 02/04/20 02/04/20 02/03/20 10:35 05:09 20:32 POC Glucose 87 75 94 02/03/20 16:41 POC Glucose 87 Radiology Reviewed by me: Yes EKG Reviewed by me: Yes ROS - Review of Systems Constitutional: denies: fever, chills, sweats, weakness, malaise, other Eyes: denies: pain, vision change, conjunctivae inflammation, eyelid inflammation, redness, other ENT: denies: ear pain, ear discharge, nose pain, nose discharge, nose congestion, mouth pain, mouth swelling, throat pain, throat swelling, other Gastrointestinal: denies: nausea, vomiting, abdominal pain, diarrhea, constipation, melena, hematochezia, other All Systems: All other systems reviewed; all pertinent +/- noted in HPI/Subj - Medication Medications: Active Medications Generic Name Dose Route Start Last Admin Trade Name Freq PRN Reason Stop Dose Admin Aspirin 325 mg 02/03/20 09:00 02/04/20 09:32 Aspirin 325 Mg Tab PO 325 mg DAILY EYAL Administration Atorvastatin Calcium 40 mg 01/31/20 21:00 02/03/20 21:55 Atorvastatin Calcium 40 Mg Tab PO 40 mg HS EYAL Administration Enoxaparin Sodium 40 mg 02/01/20 09:00 02/04/20 09:33 Enoxaparin Sodium 40 Mg/0.4 Ml Syringe SC 40 mg 0900 EYAL Administration Famotidine 20 mg 02/03/20 21:00 02/04/20 09:32 Famotidine 20 Mg Tab PO 20 mg BID EYAL Administration Dextrose/Sodium Chloride 1,000 mls @ 75 mls/hr 02/01/20 12:15 02/04/20 06:19 D5 1/2 Ns IV 1,000 mls .[id number] EYAL Administration Sodium Chloride 10 ml 01/31/20 19:07 02/02/20 20:37 Flush - Normal Saline 10 Ml Syringe IVF 10 ml PRN PRN Administration Saline Flush - Exam General Appearance: awake alert Eye: PERRL ENT: normocephalic atraumatic Neck: supple Respiratory: CTAB Cardiovascular: RRR Gastrointestinal: soft Extremities: no cyanosis Skin: normal turgor Neurological: facial droop, hemiplegia Neurological - other findings: left hemiparesis Musculoskeletal: normal tone, no muscle wasting PSYCH: normal affect, normal behavior, A&O x 3 Results - Labs Result Diagrams: 02/04/20 04:31 02/04/20 04:31 Lab results: WBC 7.2 thou/uL (4.8-10.8) 02/04/20 04:31 Hgb 15.1 g/dL (14.0-18.0) 02/04/20 04:31 Hct 46.7 % (42.0-52.0) 02/04/20 04:31 MCV 93.9 fL (78.0-98.0) 02/04/20 04:31 Plt Count 133 thou/uL (130-400) 02/04/20 04:31 Neutrophils % 67.3 % (42.0-75.0) 02/04/20 04:31 Sodium 139 mmol/L (136-145) 02/04/20 04:31 Potassium 3.8 mmol/L (3.5-5.1) 02/04/20 04:31 Chloride 107 mmol/L (98-107) 02/04/20 04:31 Carbon Dioxide 26 mmol/L (23-31) 02/04/20 04:31 BUN 11 mg/dL (8.4-25.7) 02/04/20 04:31 Creatinine 0.70 mg/dL (0.7-1.3) 02/04/20 04:31 Glucose 88 mg/dL (80-115) 02/04/20 04:31 Calcium 8.4 mg/dL (7.8-10.44) 02/04/20 04:31 Total Bilirubin 0.6 mg/dL (0.2-1.2) 01/31/20 17:24 AST 35 U/L (5-34) H 01/31/20 17:24 ALT 79 U/L (8-55) H 01/31/20 17:24 Alkaline Phosphatase 76 U/L (40-110) 01/31/20 17:24 Troponin I Less than 0.010 ng/mL (< 0.028) 01/31/20 17:24 Serum Total Protein 6.7 g/dL (5.8-8.1) 01/31/20 17:24 Albumin 3.7 g/dL (3.4-4.8) 01/31/20 17:24 Urine Ketones Negative mg/dL (Negative) 02/02/20 17:55 Urine Blood Negative (Negative) 02/02/20 17:55 Urine Nitrite Negative (Negative) 02/02/20 17:55 Ur Leukocyte Esterase Negative Asher/uL (Negative) 02/02/20 17:55 - Radiology Interpretation MRI - head Additional Comment: Positive for acute infarction PN A/P (1) Acute CVA (cerebrovascular accident) Code(s): I63.9 - CEREBRAL INFARCTION, UNSPECIFIED Status: Acute (2) Acute metabolic encephalopathy Code(s): G93.41 - METABOLIC ENCEPHALOPATHY Status: Acute (3) History of hypertension Code(s): Z86.79 - PERSONAL HISTORY OF OTHER DISEASES OF THE CIRCULATORY SYSTEM Status: Chronic (4) Left hemiplegia Code(s): G81.94 - HEMIPLEGIA, UNSPECIFIED AFFECTING LEFT NONDOMINANT SIDE Status: Acute - Plan Daily Plan: PT/OT, speech therapy, DVT proph w/SCDs Mr. Goldsmith is a 64-year-old male presented with left-sided weakness and left facial droop. Neurological deficits significantly improved since admission. Patient continues to participate with physical therapy. MRI of the brain reviewed which was consistent with acute/subacute multifocal infarcts in the right middle cerebral artery territory. CTA of the head and neck showed vascular occlusion of the right internal carotid artery at its origin with collateral circulation and moderate atherosclerotic disease. 2D echo to evaluate for left ventricular ejection fraction is completed. LVEF 55 % no thrombus or PFO. Continue telemetry EEG to evaluate for encephalopathy is negative for seizure activity. Continue neurochecks every 4 hours. Continue aspirin and high intensity statin for secondary stroke prevention. Continue to monitor blood pressure and blood glucose. Continue PT/OT/speech DVT prophylaxis Continue medical management per primary team. cASE Management on board regarding discharge planning Plan discussed with the nursing staff
--- NOTE | 2020-02-04 16:16 | PDOC.HOSPP ---
- Subjective Encounter Date: 02/04/20 Encounter Time: 07:00 Subjective: Patient seen for follow-up for CVA. He denies any new complaints. - Objective Vital Signs & Weight: Vital Signs (12 hours) Temp Pulse Pulse Pulse Resp BP BP 02/04/20 14:35 97.4 F L 55 L 14 02/04/20 11:34 98.4 F 55 L 14 02/04/20 08:53 91 55 L 119/77 137/88 02/04/20 07:43 97.8 F 50 L 14 BP Pulse Ox 02/04/20 14:35 113/72 98 02/04/20 11:34 109/72 95 02/04/20 08:53 02/04/20 07:43 133/82 91 L Weight Admit Weight 165 lb 1.6 oz Weight 165 lb 1.6 oz I&O: 02/03/20 02/04/20 02/05/20 06:59 06:59 06:59 Intake Total 240 720 Output Total 1000 1050 Balance -760 -330 Result Diagrams: 02/04/20 04:31 02/04/20 04:31 Additional Labs: Accuchecks 02/04/20 02/04/20 02/03/20 10:35 05:09 20:32 POC Glucose 87 75 94 02/03/20 16:41 POC Glucose 87 Labs and MAR reviewed by me EKG Reviewed by me: Yes (Telemetry shows normal sinus rhythm) Hospitalist ROS - Review of Systems Cardiovascular: denies: chest pain, palpitations, orthopnea, paroxysmal noc. dyspnea, edema Genitourinary: denies: dysuria, frequency, incontinence, hematuria - Medication Medications: Active Medications Generic Name Dose Route Start Last Admin Trade Name Mian PRN Reason Stop Dose Admin Aspirin 325 mg 02/03/20 09:00 02/04/20 09:32 Aspirin 325 Mg Tab PO 325 mg DAILY EYAL Administration Atorvastatin Calcium 40 mg 01/31/20 21:00 02/03/20 21:55 Atorvastatin Calcium 40 Mg Tab PO 40 mg HS EYAL Administration Enoxaparin Sodium 40 mg 02/01/20 09:00 02/04/20 09:33 Enoxaparin Sodium 40 Mg/0.4 Ml Syringe SC 40 mg 0900 EYAL Administration Famotidine 20 mg 02/03/20 21:00 02/04/20 09:32 Famotidine 20 Mg Tab PO 20 mg BID EYAL Administration Dextrose/Sodium Chloride 1,000 mls @ 75 mls/hr 02/01/20 12:15 02/04/20 06:19 D5 1/2 Ns IV 1,000 mls .[id number] EYAL Administration Sodium Chloride 10 ml 01/31/20 19:07 02/02/20 20:37 Flush - Normal Saline 10 Ml Syringe IVF 10 ml PRN PRN Administration Saline Flush - Exam General Appearance: awake alert Eye: anicteric sclera ENT: moist mucosa Neck: supple Heart: RRR Respiratory: CTAB Gastrointestinal: soft, non-tender Skin: no rashes Psychiatric: normal affect, normal behavior Hosp A/P - Plan -Assessment (1) Acute CVA (cerebrovascular accident) Code(s): I63.9 - CEREBRAL INFARCTION, UNSPECIFIED Status: Acute (2) Acute metabolic encephalopathy Code(s): G93.41 - METABOLIC ENCEPHALOPATHY Status: Acute (3) Left hemiplegia Code(s): G81.94 - HEMIPLEGIA, UNSPECIFIED AFFECTING LEFT NONDOMINANT SIDE Sta tus: Acute (4) History of hypertension Code(s): Z86.79 - PERSONAL HISTORY OF OTHER DISEASES OF THE CIRCULATORY SYSTEM Status: Chronic (5) Leukocytosis Code(s): D72.829 - ELEVATED WHITE BLOOD CELL COUNT, UNSPECIFIED Status: Resolved - Plan CVA: Patient is on aspirin and statin. Discharge planning in progress. Right carotid occlusion: continue statin. History of hypertension: Permissive hypertension for now. Acute metabolic encephalopathy: Improving. Leukocytosis: Resolved
[2020-02-04] MEDS: Atorvastatin Calcium 40 MG TAB PO SCH (22:19)
[2020-02-05] MEDS: Dextrose 5 %-0.45 % NaCl 1,000 ML IV SCH ×3 (05:12→20:13)
[2020-02-05 05:34] LABS: #Basophils 0.1 thou/uL (0.0-0.2); #Eosinphils 0.3 thou/uL (0.0-0.7); #Monocytes 0.8 thou/uL (0.11-0.59); #Neutrophils 4.3 thou/uL (1.40-6.50); %Basophils 0.8 % (0.0-1.0); %Eosinophils 3.9 % (0.0-10.0); %Lymphocytes 26.3 % (21.0-51.0); %Monocytes 11.2 % (0.0-10.0); %Neutrophils 57.8 % (42.0-75.0); Hemoglobin 14.5 g/dL (14.0-18.0); Mean Corpuscular HGB CONC 31.8 g/dL (32.0-36.0); Mean Corpuscular Hemoglobin 29.3 pg (27.0-31.0); Mean Corpuscular Volume 92.3 fL (78.0-98.0); Mean Platelet Volume 10.4 fL (7.4-10.4); Platelet Count 138 thou/uL (130-400); RBC Distribution Width 11.8 % (11.5-14.5); Red Blood Cell (RBC) Count 4.96 mill/uL (4.70-6.10); White Blood Cell (WBC) Count 7.5 thou/uL (4.8-10.8)
[2020-02-05 05:56] LABS: Anion Gap 11 mmol/L (10-20); BUN (Urea Nitrogen) 10 mg/dL (8.4-25.7); Calc. Creatinine Clearance 113 mL/min (70-130); Calcium 8.5 mg/dL (7.8-10.44); Carbon Dioxide 24 mmol/L (23-31); Chloride 107 mmol/L (98-107); Estimated GFR-MDRD Greater than 90; Glucose 74 mg/dL (80-115); Potassium 3.9 mmol/L (3.5-5.1); Sodium 138 mmol/L (136-145)
[2020-02-05] MEDS: Enoxaparin Sodium 40 MG/0.4 ML SYRINGE SC SCH (08:17)
[2020-02-05] MEDS: Aspirin 325 MG TAB PO SCH (08:17)
[2020-02-05] MEDS: Famotidine 20 MG TAB PO SCH ×2 (08:17→20:13)
--- NOTE | 2020-02-05 12:04 | PDOC.NEUPN ---
- Subjective Encounter Date: 02/05/20 Subjective: Patient denies any new complaint in the last 24 hours. - Objective Vital Signs & Weight: Vital Signs (12 hours) Temp Pulse Resp BP Pulse Ox 02/05/20 08:34 97.4 F L 50 L 13 111/74 97 02/05/20 04:00 98.1 F 57 L 16 113/72 97 Weight Admit Weight 165 lb 1.6 oz Weight 165 lb 1.6 oz I&O: 02/04/20 02/05/20 02/06/20 06:59 06:59 06:59 Intake Total 720 Output Total 1050 Balance -330 Result Diagrams: 02/05/20 04:55 02/05/20 04:55 Additional Labs: Accuchecks 02/05/20 02/05/20 02/04/20 11:08 05:22 20:43 POC Glucose 84 83 96 02/04/20 17:06 POC Glucose 76 Radiology Reviewed by me: Yes EKG Reviewed by me: Yes ROS - Review of Systems Constitutional: denies: fever, chills, sweats, weakness, malaise, other Eyes: denies: pain, vision change, conjunctivae inflammation, eyelid inflammation, redness, other ENT: denies: ear pain, ear discharge, nose pain, nose discharge, nose congestion, mouth pain, mouth swelling, throat pain, throat swelling, other Respiratory: denies: cough, dry, shortness of breath, hemoptysis, SOB with excertion, pleuritic pain, sputum, wheezing, other Skin: denies: rash, lesions, ana, bruising, other Neurological: reports: weakness All Systems: All other systems reviewed; all pertinent +/- noted in HPI/Subj - Medication Medications: Active Medications Generic Name Dose Route Start Last Admin Trade Name Freq PRN Reason Stop Dose Admin Aspirin 325 mg 02/03/20 09:00 02/05/20 08:17 Aspirin 325 Mg Tab PO 325 mg DAILY EYAL Administration Atorvastatin Calcium 40 mg 01/31/20 21:00 02/04/20 22:19 Atorvastatin Calcium 40 Mg Tab PO 40 mg HS EYAL Administration Enoxaparin Sodium 40 mg 02/01/20 09:00 02/05/20 08:17 Enoxaparin Sodium 40 Mg/0.4 Ml Syringe SC 40 mg 0900 EYAL Administration Famotidine 20 mg 02/03/20 21:00 02/05/20 08:17 Famotidine 20 Mg Tab PO 20 mg BID EYAL Administration Dextrose/Sodium Chloride 1,000 mls @ 75 mls/hr 02/01/20 12:15 02/05/20 05:12 D5 1/2 Ns IV 1,000 mls .[id number] EYAL Administration Sodium Chloride 10 ml 01/31/20 19:07 02/02/20 20:37 Flush - Normal Saline 10 Ml Syringe IVF 10 ml PRN PRN Administration Saline Flush - Exam General Appearance: awake alert Eye: PERRL ENT: normocephalic atraumatic Neck: supple Respiratory: CTAB Cardiovascular: RRR Gastrointestinal: soft Extremities: no cyanosis Skin: normal turgor Neurological: no new deficit Musculoskeletal: normal tone, normal strength, no muscle wasting PSYCH: normal affect, normal behavior, A&O x 3 Results - Labs Result Diagrams: 02/05/20 04:55 02/05/20 04:55 Lab results: WBC 7.5 thou/uL (4.8-10.8) 02/05/20 04:55 Hgb 14.5 g/dL (14.0-18.0) 02/05/20 04:55 Hct 45.8 % (42.0-52.0) 02/05/20 04:55 MCV 92.3 fL (78.0-98.0) 02/05/20 04:55 Plt Count 138 thou/uL (130-400) 02/05/20 04:55 Neutrophils % 57.8 % (42.0-75.0) 02/05/20 04:55 Sodium 138 mmol/L (136-145) 02/05/20 04:55 Potassium 3.9 mmol/L (3.5-5.1) 02/05/20 04:55 Chloride 107 mmol/L (98-107) 02/05/20 04:55 Carbon Dioxide 24 mmol/L (23-31) 02/05/20 04:55 BUN 10 mg/dL (8.4-25.7) 02/05/20 04:55 Creatinine 0.70 mg/dL (0.7-1.3) 02/05/20 04:55 Glucose 74 mg/dL (80-115) L 02/05/20 04:55 Calcium 8.5 mg/dL (7.8-10.44) 02/05/20 04:55 Total Bilirubin 0.6 mg/dL (0.2-1.2) 01/31/20 17:24 AST 35 U/L (5-34) H 01/31/20 17:24 ALT 79 U/L (8-55) H 01/31/20 17:24 Alkaline Phosphatase 76 U/L (40-110) 01/31/20 17:24 Troponin I Less than 0.010 ng/mL (< 0.028) 01/31/20 17:24 Serum Total Protein 6.7 g/dL (5.8-8.1) 01/31/20 17:24 Albumin 3.7 g/dL (3.4-4.8) 01/31/20 17:24 Urine Ketones Negative mg/dL (Negative) 02/02/20 17:55 Urine Blood Negative (Negative) 02/02/20 17:55 Urine Nitrite Negative (Negative) 02/02/20 17:55 Ur Leukocyte Esterase Negative Asher/uL (Negative) 02/02/20 17:55 - Radiology Interpretation MRI - head Additional Comment: MRI of the brain considered consistent with acute/subacute infarction PN A/P (1) Acute CVA (cerebrovascular accident) Code(s): I63.9 - CEREBRAL INFARCTION, UNSPECIFIED Status: Acute (2) Acute metabolic encephalopathy Code(s): G93.41 - METABOLIC ENCEPHALOPATHY Status: Acute (3) History of hypertension Code(s): Z86.79 - PERSONAL HISTORY OF OTHER DISEASES OF THE CIRCULATORY SYSTEM Status: Chronic (4) Left hemiplegia Code(s): G81.94 - HEMIPLEGIA, UNSPECIFIED AFFECTING LEFT NONDOMINANT SIDE Status: Acute - Plan Daily Plan: PT/OT, speech therapy, DVT proph w/SCDs Mr. Goldsmith is a 64-year-old male presented with left-sided weakness and left facial droop. Neurological deficits significantly improved since admission. Mr. Goldsmith denies any new complaints in the last 24 hours. Patient continues to participate with physical therapy. MRI of the brain reviewed which was consistent with acute/subacute multifocal infarcts in the right middle cerebral artery territory. CTA of the head and neck showed vascular occlusion of the right internal carotid artery at its origin with collateral circulation and moderate atherosclerotic disease. 2D echo to evaluate for left ventricular ejection fraction is completed. LVEF 55 % no thrombus or PFO. Continue telemetry EEG to evaluate for encephalopathy is negative for seizure activity. Continue neurochecks every 4 hours. Continue aspirin and high intensity statin for secondary stroke prevention. Continue to monitor blood pressure and blood glucose. Continue PT/OT/speech DVT prophylaxis Continue medical management per primary team. CASE Management on board regarding discharge planning Plan discussed with the patient, nursing staff and during the stroke rounds
--- NOTE | 2020-02-05 17:50 | PDOC.HOSPP ---
- Subjective Encounter Date: 02/05/20 Encounter Time: 09:00 Subjective: Patient seen for follow-up regarding acute CVA. He denies chest pain or shortness of breath. - Objective Vital Signs & Weight: Vital Signs (12 hours) Temp Pulse Pulse Pulse Resp BP BP 02/05/20 16:12 96.9 F L 51 L 13 02/05/20 12:06 97.9 F 52 L 15 02/05/20 08:48 51 L 50 L 118/71 116/79 02/05/20 08:34 97.4 F L 50 L 13 BP Pulse Ox 02/05/20 16:12 134/84 97 02/05/20 12:06 117/73 94 L 02/05/20 08:48 02/05/20 08:34 111/74 97 Weight Admit Weight 165 lb 1.6 oz Weight 165 lb 1.6 oz I&O: 02/04/20 02/05/20 02/06/20 06:59 06:59 06:59 Intake Total 720 1772 Output Total 1050 Balance -330 1772 Result Diagrams: 02/05/20 04:55 02/05/20 04:55 Additional Labs: Accuchecks 02/05/20 02/05/20 02/05/20 17:04 11:08 05:22 POC Glucose 85 84 83 02/04/20 20:43 POC Glucose 96 I reviewed patient's labs and MAR EKG Reviewed by me: Yes (Normal sinus rhythm on telemetry) Hospitalist ROS - Review of Systems Cardiovascular: denies: chest pain, palpitations, orthopnea, paroxysmal noc. dyspnea, edema, light headedness Skin: denies: rash, lesions, bruising - Medication Medications: Active Medications Generic Name Dose Route Start Last Admin Trade Name Freq PRN Reason Stop Dose Admin Aspirin 325 mg 02/03/20 09:00 02/05/20 08:17 Aspirin 325 Mg Tab PO 325 mg DAILY EYAL Administration Atorvastatin Calcium 40 mg 01/31/20 21:00 02/04/20 22:19 Atorvastatin Calcium 40 Mg Tab PO 40 mg HS EYAL Administration Enoxaparin Sodium 40 mg 02/01/20 09:00 02/05/20 08:17 Enoxaparin Sodium 40 Mg/0.4 Ml Syringe SC 40 mg 0900 EYAL Administration Famotidine 20 mg 02/03/20 21:00 02/05/20 08:17 Famotidine 20 Mg Tab PO 20 mg BID EYAL Administration Dextrose/Sodium Chloride 1,000 mls @ 75 mls/hr 02/01/20 12:15 02/05/20 16:37 D5 1/2 Ns IV Not Given .[id number] EYAL Sodium Chloride 10 ml 01/31/20 19:07 02/02/20 20:37 Flush - Normal Saline 10 Ml Syringe IVF 10 ml PRN PRN Administration Saline Flush - Exam General Appearance: awake alert ENT: normocephalic atraumatic, no oropharyngeal lesions Neck: symmetric, no thyromegaly Heart: RRR Respiratory: CTAB Gastrointestinal: soft, no palpable masses Skin: no rashes Musculoskeletal: normal tone, normal strength Hosp A/P - Plan -Assessment Patient is a pleasant 64-year-old gentleman who was admitted to the hospital on January 31, 2020 for left-sided hemiplegia and left facial droop. He also had acute encephalopathy. He was found to have complete right carotid occlusion with some collateral flow. He was seen by neurology service. MRI of the brain showed multifocal areas of restricted diffusion in the right cerebral hemisphere within the right middle cerebral artery distribution consistent with multifocal acute/subacute infarcts. EEG was consistent with mild generalized nonspecific cerebral dysfunction. 2D echocardiogram showed left ventricle ejection fraction of 55 to 60%, normal right ventricular size and function. Continues to improve. Case management is trying to locate family on the also sent email to medical eligibility to follow-up on possible disability. PT recommends inpatient rehab. (1) Acute CVA (cerebrovascular accident) Code(s): I63.9 - CEREBRAL INFARCTION, UNSPECIFIED Status: Acute (2) Acute metabolic encephalopathy Code(s): G93.41 - METABOLIC ENCEPHALOPATHY Status: Acute (3) Left hemiplegia Code(s): G81.94 - HEMIPLEGIA, UNSPECIFIED AFFECTING LEFT NONDOMINANT SIDE Status: Acute (4) History of hypertension Code(s): Z86.79 - PERSONAL HISTORY OF OTHER DISEASES OF THE CIRCULATORY SYSTEM Status: Chronic (5) Leukocytosis Code(s): D72.829 - ELEVATED WHITE BLOOD CELL COUNT, UNSPECIFIED Status: Resolved - Plan CVA: Continue aspirin and statin. Discharge planning in progress. Right carotid occlusion: Patient is on statin. History of hypertension: Permissive hypertension for now. Acute metabolic encephalopathy: Improving. Leukocytosis: Resolved Disposition: To inpatient rehab.
[2020-02-05] MEDS: Atorvastatin Calcium 40 MG TAB PO SCH (20:13)
[2020-02-06] MEDS: Dextrose 5 %-0.45 % NaCl 1,000 ML IV SCH ×2 (08:20→22:20)
[2020-02-06] MEDS: Aspirin 325 MG TAB PO SCH (08:21)
[2020-02-06] MEDS: Enoxaparin Sodium 40 MG/0.4 ML SYRINGE SC SCH (08:21)
[2020-02-06] MEDS: Famotidine 20 MG TAB PO SCH ×2 (08:21→20:01)
--- NOTE | 2020-02-06 12:09 | PDOC.HOSPP ---
- Subjective Encounter Date: 02/06/20 Encounter Time: 12:08 Subjective: Mr. William Goldsmith is a 64-year-old patient who was admitted to the hospital for acute stroke. It appears that he was found to have a right MCA stroke with right internal carotid artery stenosis. He is being evaluated for rehab placement. Due to patient being under insured uninsured this may be difficult. Case management continues to work on that. No family at the bedside to discuss goals of care. - Objective Vital Signs & Weight: Vital Signs (12 hours) Temp Pulse Resp BP Pulse Ox 02/06/20 07:42 97.8 F 47 L 14 149/94 H 98 02/06/20 03:54 97.8 F 49 L 14 138/86 96 Weight Admit Weight 165 lb 1.6 oz Weight 165 lb 1.6 oz I&O: 02/05/20 02/06/20 02/07/20 06:59 06:59 06:59 Intake Total 1772 Balance 1772 Result Diagrams: 02/05/20 04:55 02/05/20 04:55 Additional Labs: Accuchecks 02/06/20 02/05/20 10:15 17:04 POC Glucose 97 85 Radiology Reviewed by me: Yes EKG Reviewed by me: Yes Hospitalist ROS - Review of Systems ROS unobtainable: due to mental status Constitutional: reports: weakness Gastrointestinal: reports: nausea Neurological: reports: weakness, change in speech, confusion - Medication Medications: Active Medications Generic Name Dose Route Start Last Admin Trade Name Freq PRN Reason Stop Dose Admin Aspirin 325 mg 02/03/20 09:00 02/06/20 08:21 Aspirin 325 Mg Tab PO 325 mg DAILY EYAL Administration Atorvastatin Calcium 40 mg 01/31/20 21:00 02/05/20 20:13 Atorvastatin Calcium 40 Mg Tab PO 40 mg HS EYAL Administration Enoxaparin Sodium 40 mg 02/01/20 09:00 02/06/20 08:21 Enoxaparin Sodium 40 Mg/0.4 Ml Syringe SC 40 mg 0900 EYAL Administration Famotidine 20 mg 02/03/20 21:00 02/06/20 08:21 Famotidine 20 Mg Tab PO 20 mg BID EYAL Administration Dextrose/Sodium Chloride 1,000 mls @ 75 mls/hr 02/01/20 12:15 02/06/20 08:20 D5 1/2 Ns IV 1,000 mls .[id number] EYAL Administration Sodium Chloride 10 ml 01/31/20 19:07 02/02/20 20:37 Flush - Normal Saline 10 Ml Syringe IVF 10 ml PRN PRN Administration Saline Flush - Exam General Appearance: NAD, awake alert, ill appearing Eye: PERRL ENT: normocephalic atraumatic, no oropharyngeal lesions, moist mucosa Neck: supple, symmetric, no JVD, no thyromegaly, no lymphadenopathy Heart: RRR, no murmur, no gallops, no rubs, normal peripheral pulses Respiratory: CTAB, no wheezes, no rales, no ronchi, normal chest expansion, no tachypnea Gastrointestinal: soft, non-tender, non-distended, normal bowel sounds, no palpable masses Skin: normal turgor Neurological: normal sensation to touch, speech deficit Musculoskeletal: generalized weakness Psychiatric: normal affect, normal behavior, oriented to person, oriented to place Hosp A/P (1) Acute metabolic encephalopathy Code(s): G93.41 - METABOLIC ENCEPHALOPATHY Status: Acute (2) CVA (cerebral vascular accident) Code(s): I63.9 - CEREBRAL INFARCTION, UNSPECIFIED Status: Acute Qualifiers: CVA mechanism: embolism Precerebral and cerebral artery: middle cerebral artery Laterality of affected vessel: right Qualified Code(s): I63.411 - Cerebral infarction due to embolism of right middle cerebral artery - Plan old records reviewed/req, PT/OT, mental health social worker, speech therapy, DVT proph w/lovenox #1. Right MCA acute stroke. It appears that the patient suffered a subacute ischemic event likely an embolic stroke. We appreciate neurologist ongoing evaluation. Patient is pending transfer to rehab. 2. Right internal carotid artery stenosis. Continue statins and antiplatelets. 3. Hypertensive heart disease. Blood pressure appears to be controlled. 4. Dyslipidemia Continue statins as above.
[2020-02-06 13:57] LABS: #Eosinphils 0.3 thou/uL (0.0-0.7); #Lymphocytes 1.6 thou/uL (1.20-3.40); #Monocytes 0.7 thou/uL (0.11-0.59); #Neutrophils 4.3 thou/uL (1.40-6.50); %Basophils 0.7 % (0.0-1.0); %Eosinophils 4.7 % (0.0-10.0); %Lymphocytes 22.6 % (21.0-51.0); %Monocytes 9.4 % (0.0-10.0); %Neutrophils 62.7 % (42.0-75.0); Hemoglobin 14.4 g/dL (14.0-18.0); Mean Corpuscular HGB CONC 32.6 g/dL (32.0-36.0); Mean Corpuscular Volume 92.1 fL (78.0-98.0); Mean Platelet Volume 10.4 fL (7.4-10.4); Platelet Count 124 thou/uL (130-400); RBC Distribution Width 11.7 % (11.5-14.5); Red Blood Cell (RBC) Count 4.81 mill/uL (4.70-6.10); White Blood Cell (WBC) Count 6.9 thou/uL (4.8-10.8)
[2020-02-06 14:13] LABS: Anion Gap 12 mmol/L (10-20); BUN (Urea Nitrogen) 9 mg/dL (8.4-25.7); Calc. Creatinine Clearance 120 mL/min (70-130); Calcium 8.5 mg/dL (7.8-10.44); Carbon Dioxide 24 mmol/L (23-31); Chloride 108 mmol/L (98-107); Estimated GFR-MDRD Greater than 90; Glucose 90 mg/dL (80-115); Potassium 4.1 mmol/L (3.5-5.1); Sodium 140 mmol/L (136-145)
[2020-02-06] MEDS: Atorvastatin Calcium 40 MG TAB PO SCH (20:01)
[2020-02-07] MEDS: Famotidine 20 MG TAB PO SCH ×2 (08:15→21:29)
[2020-02-07] MEDS: Aspirin 325 MG TAB PO SCH (08:15)
[2020-02-07] MEDS: Enoxaparin Sodium 40 MG/0.4 ML SYRINGE SC SCH (08:15)
[2020-02-07] MEDS: Dextrose 5 %-0.45 % NaCl 1,000 ML IV SCH (12:58)
--- NOTE | 2020-02-07 14:34 | PDOC.HOSPP ---
- Subjective Encounter Date: 02/07/20 Encounter Time: 14:32 Subjective: Mr. Goldsmith was seen and evaluated today at the bedside. This is an unfortunate 64-year-old man who suffered an acute stroke. He is pending transfer to postacute services. He does still have some residual slurred speech. Case management working to place him with family or friends versus a facility. - Objective Vital Signs & Weight: Vital Signs (12 hours) Temp Pulse Pulse Pulse Resp BP BP 02/07/20 12:08 97.8 F 49 L 15 02/07/20 09:45 50 L 50 L 119/75 109/72 02/07/20 07:45 02/07/20 07:44 97.3 F L 45 L 12 02/07/20 03:45 97.4 F L 44 L 14 BP Pulse Ox 02/07/20 12:08 117/87 95 02/07/20 09:45 02/07/20 07:45 96 02/07/20 07:44 145/89 H 96 02/07/20 03:45 127/81 99 Weight Admit Weight 165 lb 1.6 oz Weight 165 lb 1.6 oz I&O: 02/06/20 02/07/20 02/08/20 06:59 06:59 06:59 Intake Total 1772 3593 Output Total 450 Balance 1772 3143 Result Diagrams: 02/06/20 13:48 02/06/20 13:48 Additional Labs: Accuchecks 02/07/20 02/07/20 02/06/20 12:08 05:29 20:53 POC Glucose 101 H 94 87 02/06/20 16:53 POC Glucose 80 Radiology Reviewed by me: Yes EKG Reviewed by me: Yes Hospitalist ROS - Review of Systems ROS unobtainable: due to mental status Constitutional: reports: weakness, malaise Cardiovascular: reports: chest pain Gastrointestinal: reports: nausea Neurological: reports: weakness, incoordination, change in speech - Medication Medications: Active Medications Generic Name Dose Route Start Last Admin Trade Name Freq PRN Reason Stop Dose Admin Aspirin 325 mg 02/03/20 09:00 02/07/20 08:15 Aspirin 325 Mg Tab PO 325 mg DAILY EYAL Administration Atorvastatin Calcium 40 mg 01/31/20 21:00 02/06/20 20:01 Atorvastatin Calcium 40 Mg Tab PO 40 mg HS EYAL Administration Enoxaparin Sodium 40 mg 02/01/20 09:00 02/07/20 08:15 Enoxaparin Sodium 40 Mg/0.4 Ml Syringe SC 40 mg 0900 EYAL Administration Famotidine 20 mg 02/03/20 21:00 02/07/20 08:15 Famotidine 20 Mg Tab PO 20 mg BID EYAL Administration Dextrose/Sodium Chloride 1,000 mls @ 75 mls/hr 02/01/20 12:15 02/07/20 12:58 D5 1/2 Ns IV 1,000 mls .[id number] EYAL Administration Sodium Chloride 10 ml 01/31/20 19:07 02/02/20 20:37 Flush - Normal Saline 10 Ml Syringe IVF 10 ml PRN PRN Administration Saline Flush - Exam General Appearance: NAD, awake alert Eye: PERRL, anicteric sclera ENT: normocephalic atraumatic, no oropharyngeal lesions, moist mucosa Neck: supple, symmetric, no JVD, no carotid bruit Heart: RRR, no murmur, no gallops, no rubs, normal peripheral pulses Respiratory: CTAB, no wheezes, no rales, no ronchi, normal chest expansion Gastrointestinal: soft, non-tender, non-distended, normal bowel sounds, no palpable masses Extremities: no cyanosis Neurological: cranial nerve grossly intact, normal sensation to touch, no weakness, no focal deficits Musculoskeletal: normal tone, normal strength, no muscle wasting Psychiatric: normal affect, normal behavior, A&O x 3 Hosp A/P (1) Acute metabolic encephalopathy Code(s): G93.41 - METABOLIC ENCEPHALOPATHY Status: Resolved Plan: This has resolved. This is likely secondary to the stroke. (2) CVA (cerebral vascular accident) Code(s): I63.9 - CEREBRAL INFARCTION, UNSPECIFIED Status: Acute Qualifiers: CVA mechanism: embolism Precerebral and cerebral artery: middle cerebral artery Laterality of affected vessel: right Qualified Code(s): I63.411 - Cerebral infarction due to embolism of right middle cerebral artery Plan: We will continue routine management as above. He is pending transfer to rehab versus home with home health services. - Plan old records reviewed/req, PT/OT, social psychologist, speech therapy, out of bed/ambulate #1. Right MCA acute stroke. It appears that the patient suffered a subacute ischemic event likely an embolic stroke. We appreciate neurologist ongoing evaluation. Patient is pending transfer to rehab. 2. Right internal carotid artery stenosis. Continue statins and antiplatelets. 3. Hypertensive heart disease. Blood pressure appears to be controlled. 4. Dyslipidemia Continue statins as above. 02/07/2020. Diagnosis as above. Patient is still pending transfer to postacute facility for rehab versus home [facility]. We will await case management recommendation.
[2020-02-07] MEDS: Atorvastatin Calcium 40 MG TAB PO SCH (21:30)
[2020-02-08] MEDS: Dextrose 5 %-0.45 % NaCl 1,000 ML IV SCH ×2 (02:29→18:57)
[2020-02-08] MEDS: Aspirin 325 MG TAB PO SCH (09:57)
[2020-02-08] MEDS: Enoxaparin Sodium 40 MG/0.4 ML SYRINGE SC SCH (09:57)
[2020-02-08] MEDS: Famotidine 20 MG TAB PO SCH ×2 (09:57→20:14)
--- NOTE | 2020-02-08 11:46 | PDOC.DS.DS ---
Provider - Provider Date of Admission: 01/31/20 18:58 Date of Discharge: 02/08/20 Admitting Provider: Sinan Tamayo MD Consultations: Neurology Primary Care Physician: NO PCP PROVIDER Course - Hospital Course Hospital Course: Mr. William Goldsmith is a 64-year-old patient who was brought into the hospital by his friends after they found him on the floor. He was noted to have a left-sided weakness and a left facial drooping. It was unclear the duration of his symptoms but when he arrived to the hospital he was noted to have an acute stroke and was promptly admitted for further stabilization. His MRI did show a right MCA stroke. This was felt to be likely embolic event. He was seen in consult by neurology who help with management of this complex patient. He had very pronounced dysarthria but this has slowly improved since being admitted. He has been working with physical therapy, occupational and speech therapist. This physician noticed this patient walking this morning mainly just by a contact-guard assist but also he was walking on standby assist. He has been tolerating his medicine including high-dose statins, antiplatelet and blood pressure medications. Patient's home situation is now very well-known and case management is working on a plan for the patient to have a safe discharge. I attempted to get in contact with a number that is listed as emergency contact for this patient Mr. Taqueria Jordan at [phone] but he did not answer the phone. The plan will be hopefully to discharge home once there is a safe discharge plan. Resuscitation Status: 01/31/20 19:08 Resuscitation Status Routine Resuscitation Status: FULL: Full Resuscitation - Labs Lab Results: 02/06/20 13:48 02/06/20 13:48 Abnormal Lab Results - Last 48 hrs 02/06/20 13:48: Chloride 108 H, Creatinine 0.66 L 02/06/20 13:48: Plt Count 124 L, Monocytes # 0.7 H - Physical Exam Vitals: Vital Signs (12 hours) Temp Pulse Resp BP Pulse Ox 02/08/20 07:48 97.5 F L 47 L 16 119/74 99 02/08/20 05:03 97.9 F 44 L 18 98 Weight Admit Weight 165 lb 1.6 oz Weight 165 lb 1.6 oz Physical Exam: The patient was seen and examined on the day of discharge. Problem - Problem (1) CVA (cerebral vascular accident) Code(s): I63.9 - CEREBRAL INFARCTION, UNSPECIFIED Status: Acute Qualifiers: CVA mechanism: embolism Precerebral and cerebral artery: middle cerebral artery Laterality of affected vessel: right Qualified Code(s): I63.411 - Cerebral infarction due to embolism of right middle cerebral artery Plan: Patient with a right MCA stroke. He has recovered majority of his deficits. He will likely benefit from home health PT. (2) Acute metabolic encephalopathy Code(s): G93.41 - METABOLIC ENCEPHALOPATHY Status: Resolved (3) History of hypertension Code(s): Z86.79 - PERSONAL HISTORY OF OTHER DISEASES OF THE CIRCULATORY SYSTEM Status: Chronic Plan - Discharge Medications Prescriptions: Aspirin 325 mg PO DAILY #90 tab hydrALAZINE HCl [Hydralazine HCl] 25 mg PO BID-WM #120 tablet Atorvastatin Calcium [Lipitor] 80 mg PO HS #90 tablet Home Medications: Medication Instructions Recorded Confirmed Type Aspirin 325 mg PO DAILY #90 tab 02/08/20 Rx Atorvastatin Calcium [Lipitor] 80 mg PO HS #90 tablet 02/08/20 Rx hydrALAZINE HCl [Hydralazine HCl] 25 mg PO BID-WM #120 tablet 02/08/20 Rx Allergies: No Known Allergies Allergy (Verified 02/01/20 20:39) - Discharge Instructions Activity:: Activity as Tolerated Nourishment:: Heart Healthy Diet Therapies:: Occupational Therapy, Physical Therapy, Not Applicable Equipment/Supplies:: Not Applicable IV Therapy:: Not Applicable - Follow up Plan Referrals: PROVIDER,NO PCP [Primary Care Provider] - Disposition: HOME HEALTH Quality - Care Measures CORE MEASURES:: Stroke/TIA - Stroke/TIA Did you prescribe antithrombotic therapy?: Yes Did you prescribe anticoagulant for A Fib/Flutter?: No Specify reason for no DC anticoagulant: Treatment not indicated Did you prescribe a statin medication?: Yes
[2020-02-08] MEDS: Atorvastatin Calcium 40 MG TAB PO SCH (20:14)
[2020-02-09] MEDS: Aspirin 325 MG TAB PO SCH (09:38)
[2020-02-09] MEDS: Enoxaparin Sodium 40 MG/0.4 ML SYRINGE SC SCH (09:38)
[2020-02-09] MEDS: Famotidine 20 MG TAB PO SCH ×2 (09:38→22:34)
--- NOTE | 2020-02-09 10:10 | PDOC.HOSPP ---
- Subjective Encounter Date: 02/09/20 Encounter Time: 10:08 Subjective: Mr. Goldsmith is a 64-year-old patient who suffered a right MCA stroke and was admitted for further stabilization. He did not require TPA because of unknown time of onset. However he has stabilized enough and was actually discharged home in the last 24 hours. For some social reasons he was not able to go home but today he is going home with a friend who will take care of him. He will continue aspirin, Lipitor and hydralazine. He is discharged today in a stable condition with family and friends. Please refer to the discharge summary for the discharge medications. - Objective Vital Signs & Weight: Vital Signs (12 hours) Temp Pulse Resp BP Pulse Ox 02/09/20 07:55 97.4 F L 86 15 108/80 100 02/09/20 04:00 97.7 F 47 L 16 142/84 H Weight Admit Weight 165 lb 1.6 oz Weight 165 lb 1.6 oz I&O: 02/08/20 02/09/20 02/10/20 06:59 06:59 06:59 Intake Total 1620 185 20 Output Total 250 Balance 1370 185 20 Result Diagrams: 02/06/20 13:48 02/06/20 13:48 Additional Labs: Accuchecks 02/09/20 02/08/20 02/08/20 06:04 21:40 16:42 POC Glucose 80 74 90 02/08/20 02/07/20 02/07/20 10:39 21:37 16:53 POC Glucose 99 96 85 02/06/20 02/05/20 05:21 21:12 POC Glucose 87 97 EKG Reviewed by me: Yes Hospitalist ROS - Review of Systems Constitutional: reports: weakness Neurological: reports: weakness, change in speech - Medication Medications: Active Medications Generic Name Dose Route Start Last Admin Trade Name Freq PRN Reason Stop Dose Admin Aspirin 325 mg 02/03/20 09:00 02/09/20 09:38 Aspirin 325 Mg Tab PO 325 mg DAILY EYAL Administration Atorvastatin Calcium 40 mg 01/31/20 21:00 02/08/20 20:14 Atorvastatin Calcium 40 Mg Tab PO 40 mg HS EYAL Administration Enoxaparin Sodium 40 mg 02/01/20 09:00 02/09/20 09:38 Enoxaparin Sodium 40 Mg/0.4 Ml Syringe SC 40 mg 0900 EYAL Administration Famotidine 20 mg 02/03/20 21:00 02/09/20 09:38 Famotidine 20 Mg Tab PO 20 mg BID EYAL Administration Sodium Chloride 10 ml 01/31/20 19:07 02/02/20 20:37 Flush - Normal Saline 10 Ml Syringe IVF 10 ml PRN PRN Administration Saline Flush - Exam General Appearance: awake alert Eye: PERRL, anicteric sclera ENT: normocephalic atraumatic, no oropharyngeal lesions Neck: supple, symmetric, no JVD, no thyromegaly, no lymphadenopathy Heart: RRR, no murmur, no gallops, no rubs, normal peripheral pulses Respiratory: CTAB, no wheezes, no rales, no ronchi, normal chest expansion Gastrointestinal: soft, non-tender, non-distended, normal bowel sounds, no palpable masses Extremities: no cyanosis, no clubbing Skin: normal turgor, no lesions Neurological: cranial nerve grossly intact, normal sensation to touch Musculoskeletal: normal tone, normal strength, no muscle wasting Psychiatric: normal affect, normal behavior, A&O x 3 Hosp A/P (1) CVA (cerebral vascular accident) Code(s): I63.9 - CEREBRAL INFARCTION, UNSPECIFIED Status: Acute Qualifiers: CVA mechanism: embolism Precerebral and cerebral artery: middle cerebral artery Laterality of affected vessel: right Qualified Code(s): I63.411 - Cerebral infarction due to embolism of right middle cerebral artery Plan: Patient with right MCA stroke. Continue PT at home. (2) Acute metabolic encephalopathy Code(s): G93.41 - METABOLIC ENCEPHALOPATHY Status: Resolved (3) History of hypertension Code(s): Z86.79 - PERSONAL HISTORY OF OTHER DISEASES OF THE CIRCULATORY SYSTEM Status: Chronic - Plan #1. Right MCA acute stroke. It appears that the patient suffered a subacute ischemic event likely an embolic stroke. We appreciate neurologist ongoing evaluation. Patient is pending transfer to rehab. 2. Right internal carotid artery stenosis. Continue statins and antiplatelets. 3. Hypertensive heart disease. Blood pressure appears to be controlled. 4. Dyslipidemia Continue statins as above. 02/07/2020. Diagnosis as above. Patient is still pending transfer to postacute facility for rehab versus home health. We will await case management recommendation.
[2020-02-09] MEDS: Atorvastatin Calcium 40 MG TAB PO SCH (22:34)
[2020-02-10] MEDS: Famotidine 20 MG TAB PO SCH (08:47)
[2020-02-10] MEDS: Enoxaparin Sodium 40 MG/0.4 ML SYRINGE SC SCH (08:47)
[2020-02-10] MEDS: Aspirin 325 MG TAB PO SCH (08:47)
[2020-02-10 11:17] VITALS: TEMP 97.8
--- NOTE | 2020-02-10 12:07 | PDOC.HOSPP ---
- Subjective Encounter Date: 02/10/20 Encounter Time: 12:05 Subjective: Mr. Goldsmith was seen and evaluated this morning. He has no complaint today when I visited. He is pending transfer home. His friend will likely pick him up later on today. - Objective Vital Signs & Weight: Vital Signs (12 hours) Temp Pulse Resp BP Pulse Ox 02/10/20 11:15 97.8 F 48 L 17 118/84 98 02/10/20 07:22 98.3 F 50 L 16 110/70 97 02/10/20 04:00 98.1 F 45 L 16 133/90 97 Weight Admit Weight 165 lb 1.6 oz Weight 165 lb 1.6 oz I&O: 02/09/20 02/10/20 02/11/20 06:59 06:59 06:59 Intake Total 185 250 Balance 185 250 Result Diagrams: 02/06/20 13:48 02/06/20 13:48 Additional Labs: Accuchecks 02/10/20 02/10/20 02/09/20 10:38 05:07 21:15 POC Glucose 81 73 91 02/09/20 17:37 POC Glucose 75 Radiology Reviewed by me: Yes EKG Reviewed by me: Yes Hospitalist ROS - Review of Systems ROS unobtainable: due to mental status Constitutional: reports: weakness, malaise Gastrointestinal: reports: nausea Neurological: reports: weakness - Medication Medications: Active Medications Generic Name Dose Route Start Last Admin Trade Name Freq PRN Reason Stop Dose Admin Aspirin 325 mg 02/03/20 09:00 02/10/20 08:47 Aspirin 325 Mg Tab PO 325 mg DAILY EYAL Administration Atorvastatin Calcium 40 mg 01/31/20 21:00 02/09/20 22:34 Atorvastatin Calcium 40 Mg Tab PO 40 mg HS EYAL Administration Enoxaparin Sodium 40 mg 02/01/20 09:00 02/10/20 08:47 Enoxaparin Sodium 40 Mg/0.4 Ml Syringe SC 40 mg 0900 EYAL Administration Famotidine 20 mg 02/03/20 21:00 02/10/20 08:47 Famotidine 20 Mg Tab PO 20 mg BID EYAL Administration Sodium Chloride 10 ml 01/31/20 19:07 02/02/20 20:37 Flush - Normal Saline 10 Ml Syringe IVF 10 ml PRN PRN Administration Saline Flush - Exam General Appearance: NAD, awake alert Eye: PERRL, anicteric sclera ENT: normocephalic atraumatic, no oropharyngeal lesions Neck: supple, symmetric, no JVD, no thyromegaly, no lymphadenopathy Heart: RRR, no murmur, no gallops, no rubs, normal peripheral pulses Respiratory: CTAB, no wheezes, no rales, no ronchi, normal chest expansion Gastrointestinal: soft, non-tender, non-distended, normal bowel sounds Psychiatric: normal affect, normal behavior, A&O x 3 Hosp A/P (1) CVA (cerebral vascular accident) Code(s): I63.9 - CEREBRAL INFARCTION, UNSPECIFIED Status: Acute Qualifiers: CVA mechanism: embolism Precerebral and cerebral artery: middle cerebral artery Laterality of affected vessel: right Qualified Code(s): I63.411 - Cerebral infarction due to embolism of right middle cerebral artery Plan: Patient is clinically stable for discharge home. (2) Acute metabolic encephalopathy Code(s): G93.41 - METABOLIC ENCEPHALOPATHY Status: Resolved (3) History of hypertension Code(s): Z86.79 - PERSONAL HISTORY OF OTHER DISEASES OF THE CIRCULATORY SYSTEM Status: Chronic - Plan old records reviewed/req, PT/OT, out of bed/ambulate, DVT proph w/lovenox #1. Right MCA acute stroke. It appears that the patient suffered a subacute ischemic event likely an embolic stroke. We appreciate neurologist ongoing evaluation. Patient is pending transfer to rehab. 2. Right internal carotid artery stenosis. Continue statins and antiplatelets. 3. Hypertensive heart disease. Blood pressure appears to be controlled. 4. Dyslipidemia Continue statins as above. 02/07/2020. Diagnosis as above. Patient is still pending transfer to postacute facility for rehab versus home health. We will await case management recommendation. 02/10/2020. Mr. Goldsmith hopefully will go home today with friend who has agreed kindly to help take care of this patient. Medically he is stable to be discharged.
[2020-02-10 12:14] VITALS: BP 97/72
--- NOTE | 2020-02-10 15:02 | PDOC.NEUPN ---
- Subjective Encounter Date: 02/10/20 Subjective: No acute complaints in the last 24 hours. - Objective Vital Signs & Weight: Vital Signs (12 hours) Temp Pulse Pulse Pulse Resp BP BP 02/10/20 11:15 97.8 F 48 L 17 02/10/20 09:16 50 L 50 L 97/72 102/70 02/10/20 07:22 98.3 F 50 L 16 02/10/20 04:00 98.1 F 45 L 16 BP Pulse Ox 02/10/20 11:15 118/84 98 02/10/20 09:16 02/10/20 07:22 110/70 97 02/10/20 04:00 133/90 97 Weight Admit Weight 165 lb 1.6 oz Weight 165 lb 1.6 oz I&O: 02/09/20 02/10/20 02/11/20 06:59 06:59 06:59 Intake Total 185 250 Balance 185 250 Result Diagrams: 02/06/20 13:48 02/06/20 13:48 Additional Labs: Accuchecks 02/10/20 02/10/20 02/09/20 10:38 05:07 21:15 POC Glucose 81 73 91 02/09/20 17:37 POC Glucose 75 Radiology Reviewed by me: Yes EKG Reviewed by me: Yes ROS - Review of Systems Constitutional: denies: fever, chills, sweats, weakness, malaise, other Eyes: denies: pain, vision change, conjunctivae inflammation, eyelid inflammation, redness, other ENT: denies: ear pain, ear discharge, nose pain, nose discharge, nose congestion, mouth pain, mouth swelling, throat pain, throat swelling, other Respiratory: denies: cough, dry, shortness of breath, hemoptysis, SOB with excertion, pleuritic pain, sputum, wheezing, other Gastrointestinal: denies: nausea, vomiting, abdominal pain, diarrhea, constipation, melena, hematochezia, other Musculoskeletal: denies: neck pain, shoulder pain, arm pain, back pain, hand pain, leg pain, foot pain, other All Systems: All other systems reviewed; all pertinent +/- noted in HPI/Subj - Medication Medications: Active Medications Generic Name Dose Route Start Last Admin Trade Name Freq PRN Reason Stop Dose Admin Aspirin 325 mg 02/03/20 09:00 02/10/20 08:47 Aspirin 325 Mg Tab PO 325 mg DAILY EYAL Administration Atorvastatin Calcium 40 mg 01/31/20 21:00 02/09/20 22:34 Atorvastatin Calcium 40 Mg Tab PO 40 mg HS EYAL Administration Enoxaparin Sodium 40 mg 02/01/20 09:00 02/10/20 08:47 Enoxaparin Sodium 40 Mg/0.4 Ml Syringe SC 40 mg 0900 EYAL Administration Famotidine 20 mg 02/03/20 21:00 02/10/20 08:47 Famotidine 20 Mg Tab PO 20 mg BID EYAL Administration Sodium Chloride 10 ml 01/31/20 19:07 02/02/20 20:37 Flush - Normal Saline 10 Ml Syringe IVF 10 ml PRN PRN Administration Saline Flush - Exam General Appearance: awake alert Eye: PERRL ENT: normocephalic atraumatic Neck: supple Respiratory: CTAB Cardiovascular: RRR Gastrointestinal: soft Extremities: no cyanosis Skin: normal turgor Neurological: no new deficit Musculoskeletal: normal tone, no muscle wasting PSYCH: normal affect, normal behavior, A&O x 3 Results - Labs Result Diagrams: 02/06/20 13:48 02/06/20 13:48 Lab results: WBC 6.9 thou/uL (4.8-10.8) 02/06/20 13:48 Hgb 14.4 g/dL (14.0-18.0) 02/06/20 13:48 Hct 44.4 % (42.0-52.0) 02/06/20 13:48 MCV 92.1 fL (78.0-98.0) 02/06/20 13:48 Plt Count 124 thou/uL (130-400) L 02/06/20 13:48 Neutrophils % 62.7 % (42.0-75.0) 02/06/20 13:48 Sodium 140 mmol/L (136-145) 02/06/20 13:48 Potassium 4.1 mmol/L (3.5-5.1) 02/06/20 13:48 Chloride 108 mmol/L (98-107) H 02/06/20 13:48 Carbon Dioxide 24 mmol/L (23-31) 02/06/20 13:48 BUN 9 mg/dL (8.4-25.7) 02/06/20 13:48 Creatinine 0.66 mg/dL (0.7-1.3) L 02/06/20 13:48 Glucose 90 mg/dL (80-115) 02/06/20 13:48 Calcium 8.5 mg/dL (7.8-10.44) 02/06/20 13:48 Total Bilirubin 0.6 mg/dL (0.2-1.2) 01/31/20 17:24 AST 35 U/L (5-34) H 01/31/20 17:24 ALT 79 U/L (8-55) H 01/31/20 17:24 Alkaline Phosphatase 76 U/L (40-110) 01/31/20 17:24 Troponin I Less than 0.010 ng/mL (< 0.028) 01/31/20 17:24 Serum Total Protein 6.7 g/dL (5.8-8.1) 01/31/20 17:24 Albumin 3.7 g/dL (3.4-4.8) 01/31/20 17:24 Urine Ketones Negative mg/dL (Negative) 02/02/20 17:55 Urine Blood Negative (Negative) 02/02/20 17:55 Urine Nitrite Negative (Negative) 02/02/20 17:55 Ur Leukocyte Esterase Negative Asher/uL (Negative) 02/02/20 17:55 PN A/P (1) Acute CVA (cerebrovascular accident) Code(s): I63.9 - CEREBRAL INFARCTION, UNSPECIFIED Status: Acute (2) Acute metabolic encephalopathy Code(s): G93.41 - METABOLIC ENCEPHALOPATHY Status: Resolved (3) History of hypertension Code(s): Z86.79 - PERSONAL HISTORY OF OTHER DISEASES OF THE CIRCULATORY SYSTEM Status: Chronic (4) Left hemiplegia Code(s): G81.94 - HEMIPLEGIA, UNSPECIFIED AFFECTING LEFT NONDOMINANT SIDE Status: Acute - Plan Daily Plan: PT/OT, speech therapy Mr. Goldsmith is a 64-year-old male presented with left-sided weakness and left fa cial droop. Neurological deficits significantly improved since admission. Mr. Goldsmith denies any new complaints in the last 24 hours. Awaiting discharge with family and friends. CASE Management on board regarding discharge planning MRI of the brain reviewed which was consistent with acute/subacute multifocal infarcts in the right middle cerebral artery territory. CTA of the head and neck showed vascular occlusion of the right internal carotid artery at its origin with collateral circulation and moderate atherosclerotic disease. 2D echo to evaluate for left ventricular ejection fraction is completed. LVEF 55 % no thrombus or PFO. Continue telemetry EEG to evaluate for encephalopathy is negative for seizure activity. Continue neurochecks every 4 hours. Continue aspirin and high intensity statin for secondary stroke prevention. Continue to monitor blood pressure and blood glucose. Continue PT/OT/speech DVT prophylaxis Continue medical management per primary team.
== END 2020-02-10 16:50 | disposition home health service (06) | DRG 64 ==
LOC: ERS 16:45 → ERHOLD 18:58 → 2SE 02-01 16:57
PROVIDERS: ADMIT Internal Medicine; ATTEND Hospitalist
DX: I63.411 Cerebral infarction due to embolism of right middle cerebral artery (principal); G93.41 Metabolic encephalopathy; G81.94 Hemiplegia, unspecified affecting left nondominant side; Z20.828 Contact with and (suspected) exposure to other viral communicable diseases; F17.210 Nicotine dependence, cigarettes, uncomplicated; D72.829 Elevated white blood cell count, unspecified; R29.810 Facial weakness; I65.21 Occlusion and stenosis of right carotid artery; R29.715 NIHSS score 15; I11.9 Hypertensive heart disease without heart failure; E78.5 Hyperlipidemia, unspecified; Z23 Encounter for immunization; Z91.19 Patient's noncompliance with other medical treatment and regimen
CPT/HCPCS: 36415; 36416; 51701; 70450; 70496; 70498; 70551; 71045; 80048; 80053; 80061; 80306; 80307; 81003; 84484; 85025; 85610; 85730; 86850; 86900; 86901; 87635; 93005; 93306; 95712; 95819; 95957; 96374; J1650; J2405; Q9967; S0028; U0003

== ENCOUNTER 2020-08-15 14:26 | Emergency (ER) | payer SELFPAY ==
[2020-08-15 15:30] LABS: #Basophils 0.1 thou/uL (0.0-0.2); #Eosinphils 0.4 thou/uL (0.0-0.7); #Lymphocytes 2.3 thou/uL (1.20-3.40); #Monocytes 0.8 thou/uL (0.11-0.59); %Basophils 0.8 % (0.0-1.0); %Eosinophils 3.7 % (0.0-10.0); %Lymphocytes 24.3 % (21.0-51.0); %Monocytes 7.9 % (0.0-10.0); %Neutrophils 63.3 % (42.0-75.0); Hemoglobin 14.1 g/dL (14.0-18.0); Mean Corpuscular HGB CONC 34.1 g/dL (32.0-36.0); Mean Platelet Volume 10.2 fL (7.4-10.4); Platelet Count 173 thou/uL (130-400); RBC Distribution Width 11.9 % (11.5-14.5); Red Blood Cell (RBC) Count 4.71 mill/uL (4.70-6.10); White Blood Cell (WBC) Count 9.5 thou/uL (4.8-10.8)
[2020-08-15 15:49] LABS: ALT (SGPT) 15 U/L (8-55); AST (SGOT) 19 U/L (5-34); Albumin 4.1 g/dL (3.4-4.8); Alkaline Phosphatase 120 U/L (40-110); Anion Gap 11 mmol/L (10-20); BUN (Urea Nitrogen) 8 mg/dL (8.4-25.7); Bilirubin, Total 0.4 mg/dL (0.2-1.2); CK (CPK) 141 U/L (30-200); Calc. Creatinine Clearance 0 mL/min (70-130); Calcium 8.9 mg/dL (7.8-10.44); Carbon Dioxide 23 mmol/L (23-31); Chloride 110 mmol/L (98-107); Globulin 3.2 g/dL (2.4-3.5); Glucose 83 mg/dL (80-115); Lipase 66 U/L (8-78); Potassium 3.8 mmol/L (3.5-5.1); Protein, Total 7.3 g/dL (5.8-8.1); Sodium 140 mmol/L (136-145)
[2020-08-15 15:50] LABS: Acetaminophen Less than 6.0 mcg/mL (10.0-30.0); Alcohol Less than 10 mg/dL (Less than 10); Salicylate Less than 8.0 mg/dL (15.0-30.0)
[2020-08-15 15:53] LABS: Bilirubin Negative (Negative); Blood, Urine Negative (Negative); Clarity Clear (Clear); Glucose, Urine (Dipstick) Normal (Negative); Ketone, Urine Negative (Negative); Leukocyte Negative Leu/uL (Negative); Nitrite Negative (Negative); Protein, Urine (Dipstick) Negative (Neg-Trace); Specific Gravity, Urine 1.015 (1.002-1.036); Urobilinogen Normal mg/dL (Less than 2); pH, Urine 5.5 (5.0-9.0)
[2020-08-15 16:03] LABS: Amphetamine Not Detected (NotDetected); Barbiturates Screen Not Detected (NotDetected); Benzodiazepine Screen Not Detected (NotDetected); Cocaine Metabolite Screen Not Detected (NotDetected); Medtox Control Line Valid? VALID (VALID); Medtox Reader # READER 1; Methadone Not Detected (NotDetected); Methamphetamine Not Detected (NotDetected); Opiate Screen Not Detected (NotDetected); Oxycodone Screen Not Detected (NotDetected); Phencyclidine (PCP) Not Detected (NotDetected); THC/Cannabinoid Screen Not Detected (NotDetected); Tricyclic Screen Not Detected (NotDetected)
== END 2020-08-15 17:15 | disposition home or self-care (01) ==
LOC: ERS 14:26
DX: R53.1 Weakness (principal); I10 Essential (primary) hypertension; F17.210 Nicotine dependence, cigarettes, uncomplicated
CPT/HCPCS: 36415; 71045; 80053; 80306; 80307; 81003; 82140; 82550; 83690; 83880; 84443; 84484; 85025; 85379; 93005

== ENCOUNTER 2020-09-12 07:16 | Emergency (ER) | payer SELFPAY ==
[2020-09-12 08:31] LABS: #Eosinphils 0.3 thou/uL (0.0-0.7); #Monocytes 0.6 thou/uL (0.11-0.59); #Neutrophils 5.4 thou/uL (1.40-6.50); %Basophils 0.6 % (0.0-1.0); %Eosinophils 3.4 % (0.0-10.0); %Lymphocytes 23.9 % (21.0-51.0); %Monocytes 7.1 % (0.0-10.0); %Neutrophils 65.1 % (42.0-75.0); Hemoglobin 12.9 g/dL (14.0-18.0); Mean Corpuscular HGB CONC 32.3 g/dL (32.0-36.0); Mean Corpuscular Hemoglobin 28.9 pg (27.0-31.0); Mean Corpuscular Volume 89.6 fL (78.0-98.0); Mean Platelet Volume 10.2 fL (7.4-10.4); Platelet Count 168 thou/uL (130-400); RBC Distribution Width 11.7 % (11.5-14.5); Red Blood Cell (RBC) Count 4.46 mill/uL (4.70-6.10); White Blood Cell (WBC) Count 8.3 thou/uL (4.8-10.8)
[2020-09-12 08:47] LABS: ALT (SGPT) 11 U/L (8-55); AST (SGOT) 13 U/L (5-34); Albumin 3.9 g/dL (3.4-4.8); Alkaline Phosphatase 94 U/L (40-110); Anion Gap 11 mmol/L (10-20); BUN (Urea Nitrogen) 10 mg/dL (8.4-25.7); Bilirubin, Total 0.6 mg/dL (0.2-1.2); Calc. Creatinine Clearance 0 mL/min (70-130); Calcium 9.1 mg/dL (7.8-10.44); Carbon Dioxide 25 mmol/L (23-31); Chloride 108 mmol/L (98-107); Globulin 3.1 g/dL (2.4-3.5); Glucose 91 mg/dL (80-115); Potassium 3.2 mmol/L (3.5-5.1); Sodium 141 mmol/L (136-145)
[2020-09-12] MEDS ORDERED: Potassium Chloride 20 MEQ TAB ONE (09:27)
== END 2020-09-12 10:25 | disposition home or self-care (01) ==
LOC: ERS 07:16
DX: R51.9 Headache, unspecified (principal); R53.83 Other fatigue; R53.1 Weakness; M25.50 Pain in unspecified joint; I10 Essential (primary) hypertension; F17.210 Nicotine dependence, cigarettes, uncomplicated; Z91.14 Patient's other noncompliance with medication regimen; Z86.73 Personal history of transient ischemic attack (TIA), and cerebral infarction without residual deficits
CPT/HCPCS: 36415; 70450; 80053; 85025

== ENCOUNTER 2024-01-11 08:48 | Emergency (ER) | payer MEDICARE ==
[2024-01-11] MEDS ORDERED: fentaNYL 50 mcg/mL 1 mL Vial ONE (09:08)
[2024-01-11 09:39] LABS: #Basophils 0.04 10x3/uL (0.0-0.2); %Basophils 0.5 % (0.0-1.0); %Eosinophils 3.4 % (0.0-10.0); %Monocytes 7.5 % (0.0-10.0); %Neutrophils 69.4 % (42.0-75.0); Hematocrit 38.2 % (42.0-52.0); Hemoglobin 12.9 g/dL (14.0-18.0); Mean Corpuscular HGB CONC 33.8 g/dL (32.0-36.0); Mean Corpuscular Hemoglobin 29.2 pg (27.0-31.0); Mean Corpuscular Volume 86.4 fL (78.0-98.0); Mean Platelet Volume 12.6 fL (7.4-10.4); Platelet Count 160 10x3/uL (130-400); Red Blood Cell (RBC) Count 4.42 mill/uL (4.70-6.10)
[2024-01-11 10:12] LABS: ALT (SGPT) 23 U/L (8-55); AST (SGOT) 18 U/L (5-34); Albumin 3.6 g/dL (3.4-4.8); Alkaline Phosphatase 88 U/L (40-110); Anion Gap 11 mmol/L (10-20); BUN (Urea Nitrogen) 9 mg/dL (8.4-25.7); Bilirubin, Total 0.5 mg/dL (0.2-1.2); Calc. Creatinine Clearance 0 mL/min (70-130); Carbon Dioxide 24 mmol/L (23-31); Chloride 108 mmol/L (98-107); Estimated GFR 99; Globulin 3.4 g/dL (2.4-3.5); Glucose 139 mg/dL (80-115); Potassium 3.3 mmol/L (3.5-5.1); Sodium 140 mmol/L (136-145)
[2024-01-11 10:55] LABS: Troponin I Less than 0.010 ng/mL (< 0.028)
[2024-01-11] MEDS ORDERED: Ketorolac Tromethamine 30 MG (1 mL) VIAL ONE (11:07)
== END 2024-01-11 16:57 | disposition home or self-care (01) ==
LOC: ERS 08:48
DX: R07.9 Chest pain, unspecified (principal); I10 Essential (primary) hypertension; E11.9 Type 2 diabetes mellitus without complications; E78.00 Pure hypercholesterolemia, unspecified; F17.210 Nicotine dependence, cigarettes, uncomplicated; Z75.8 Other problems related to medical facilities and other health care; Z55.6 Problems related to health literacy; Z86.73 Personal history of transient ischemic attack (TIA), and cerebral infarction without residual deficits; Z79.899 Other long term (current) drug therapy
CPT/HCPCS: 71045; 80053; 83880; 84484; 85025; 85379; 93005; 96374; 96375; 99285; J1885; J3010; 36415

== ENCOUNTER 2024-02-28 12:00 | Observation (INO) | payer MEDICARE, SELFPAY ==
[~2024-02-28 12:00] MED LIST changes: -Iopamidol-370 76% 500 ML 1 ML ONE; +Iopamidol-370 76% 500 ML MDV (1 ML CHARGE) ONE
[2024-02-28 13:29] LABS: #Basophils 0.04 10x3/uL (0.0-0.2); %Basophils 0.5 % (0.0-1.0); %Eosinophils 2.8 % (0.0-10.0); %Lymphocytes 27.5 % (21.0-51.0); %Neutrophils 59.8 % (42.0-75.0); Hematocrit 39.6 % (42.0-52.0); Hemoglobin 13.2 g/dL (14.0-18.0); Mean Corpuscular HGB CONC 33.3 g/dL (32.0-36.0); Mean Corpuscular Hemoglobin 28.6 pg (27.0-31.0); Mean Corpuscular Volume 85.9 fL (78.0-98.0); Mean Platelet Volume 12.6 fL (7.4-10.4); Platelet Count 176 10x3/uL (130-400); RBC Distribution Width 13.3 % (11.5-14.5); Red Blood Cell (RBC) Count 4.61 mill/uL (4.70-6.10)
[2024-02-28 13:44] LABS: ALT (SGPT) 21 U/L (8-55); AST (SGOT) 20 U/L (5-34); Albumin 3.9 g/dL (3.4-4.8); Alkaline Phosphatase 95 U/L (40-110); Anion Gap 14 mmol/L (10-20); BUN (Urea Nitrogen) 9 mg/dL (8.4-25.7); Bilirubin, Total 0.5 mg/dL (0.2-1.2); Calc. Creatinine Clearance 0 mL/min (70-130); Calcium 9.1 mg/dL (7.8-10.44); Carbon Dioxide 24 mmol/L (23-31); Chloride 105 mmol/L (98-107); Estimated GFR 100; Globulin 3.4 g/dL (2.4-3.5); Glucose 92 mg/dL (80-115); Lipase 38 U/L (8-78); Magnesium 2.1 mg/dL (1.6-2.6); PTT 28.6 sec (22.9-36.1); Potassium 3.8 mmol/L (3.5-5.1); Protein, Total 7.3 g/dL (5.8-8.1); Prothrombin Time 13.3 sec (12.0-14.7); Sodium 139 mmol/L (136-145)
[2024-02-28 13:49] LABS: Troponin I Less than 0.010 ng/mL (< 0.028)
[2024-02-28] MEDS ORDERED: Aspirin 325 MG TAB ONE (15:21)
[2024-02-28] MEDS ORDERED: Aspirin 300 MG Suppository ONE (15:46)
[2024-02-28] MEDS ORDERED: Acetaminophen 650 MG Suppository PR PRN (16:38)
[2024-02-28] MEDS ORDERED: hydrALAZINE 20 MG/ML VIAL SLOW IVP PRN (16:38)
[2024-02-28] MEDS ORDERED: Ondansetron ODT 4 MG TAB PO PRN (16:38)
[2024-02-28 17:16] LABS: Hemoglobin A1c 5.4 % (4.0-6.0)
[2024-02-29] MEDS: Atorvastatin Calcium 40 MG TAB PO SCH (00:57)
[2024-02-29 03:52] VITALS: BMI 28.7
[2024-02-29 04:42] LABS: #Basophils 0.05 10x3/uL (0.0-0.2); %Basophils 0.5 % (0.0-1.0); %Eosinophils 2.5 % (0.0-10.0); %Lymphocytes 26.1 % (21.0-51.0); %Monocytes 7.6 % (0.0-10.0); %Neutrophils 63.1 % (42.0-75.0); Hemoglobin 13.6 g/dL (14.0-18.0); Mean Corpuscular HGB CONC 33.2 g/dL (32.0-36.0); Mean Corpuscular Hemoglobin 28.5 pg (27.0-31.0); Mean Platelet Volume 12.7 fL (7.4-10.4); Platelet Count 193 10x3/uL (130-400); RBC Distribution Width 13.2 % (11.5-14.5); Red Blood Cell (RBC) Count 4.77 mill/uL (4.70-6.10)
[2024-02-29 05:12] LABS: Anion Gap 13 mmol/L (10-20); BUN (Urea Nitrogen) 11 mg/dL (8.4-25.7); Calc. Creatinine Clearance 119 mL/min (70-130); Calcium 9.2 mg/dL (7.8-10.44); Carbon Dioxide 26 mmol/L (23-31); Cardiac Risk 3.7 (Less than 4.5); Chloride 105 mmol/L (98-107); Cholesterol 117 mg/dl (< 200 Desired); Estimated GFR 102; Glucose 79 mg/dL (80-115); HDL Cholesterol 32 mg/dL (>60 Neg Risk); LDL Cholesterol, Calculated 57 mg/dL; Potassium 3.5 mmol/L (3.5-5.1); Sodium 140 mmol/L (136-145); Triglycerides 140 mg/dL (Less than 150)
[2024-02-29] MEDS: Polyethylene Glycol 3350 17 GM Packet PO SCH (08:14)
[2024-02-29] MEDS: Levothyroxine Sodium 25 MCG TAB PO SCH (08:17)
[2024-02-29] MEDS: Aspirin 81 mg Enteric Coated Tablet PO SCH (08:17)
[2024-02-29] MEDS: Pantoprazole DR 40 MG TAB PO SCH (08:18)
[2024-02-29] MEDS: Acetaminophen 325 MG TAB PO PRN (08:18)
[2024-02-29] MEDS: Enoxaparin 40 MG (0.4 mL) SYRINGE SC SCH (08:20)
[2024-02-29 19:44] VITALS: BP 137/84; TEMP 98.7
[2024-02-29] MEDS ORDERED: Senokot S 8.6-50 MG TAB PO SCH (21:00)
[2024-03-01] MEDS ORDERED: Levothyroxine Sodium 25 MCG TAB PO SCH (06:00)
== END 2024-02-29 20:23 ==
LOC: ERS 12:00 → ERHOLD 14:59 → 2SE 02-29 03:28
PROVIDERS: ADMIT Family Medicine; ATTEND Internal Medicine
PROC: B24BZZZ Ultrasonography of Heart with Aorta (ICD-10-PCS; principal; 2024-02-29)
DX: R29.818 Other symptoms and signs involving the nervous system (principal); R29.810 Facial weakness; R45.851 Suicidal ideations; H53.8 Other visual disturbances; I10 Essential (primary) hypertension; I65.29 Occlusion and stenosis of unspecified carotid artery; E78.5 Hyperlipidemia, unspecified; F17.290 Nicotine dependence, other tobacco product, uncomplicated; Z86.73 Personal history of transient ischemic attack (TIA), and cerebral infarction without residual deficits; Z79.890 Hormone replacement therapy; Z79.82 Long term (current) use of aspirin; Z79.02 Long term (current) use of antithrombotics/antiplatelets; Z79.899 Other long term (current) drug therapy
CPT/HCPCS: 70450; 70496; 70498; 70551; 71045; 80048; 80061; 82962; 83036; 83690; 83735; 84484; 85025; 85610; 85730; 93005; 93306; 96372; 99285; G0378 ×3; J1650; Q9967; 36415; 36416; 80053; 84443